=== PATIENT | female | born 1990 | race African-American/Black ===

== ENCOUNTER 2017-05-11 08:06 | Observation (INO) | payer MEDICAID, OTHER ==
[2017-05-11] MEDS ORDERED: Insulin Regular 300 UNITS/3 ML VIAL ONE (08:48)
[2017-05-11 09:08] LABS: #Basophils 0.1 thou/uL (0.0-0.2); #Lymphocytes 2.7 thou/uL (1.20-3.40); #Monocytes 0.3 thou/uL (0.11-0.59); #Neutrophils 5.6 thou/uL (1.40-6.50); %Basophils 1.3 % (0.0-1.0); %Eosinophils 0.5 % (0.0-10.0); %Lymphocytes 30.6 % (21.0-51.0); %Monocytes 3.4 % (0.0-10.0); %Neutrophils 64.2 % (42.0-75.0); Hemoglobin 12.3 g/dL (12.0-16.0); Mean Corpuscular HGB CONC 34.9 g/dL (32.0-36.0); Mean Corpuscular Hemoglobin 29.1 pg (27.0-31.0); Mean Corpuscular Volume 83.4 fl (81.0-99.0); Mean Platelet Volume 9.9 fL (7.4-10.4); Platelet Count 172 thou/uL (130-400); RBC Distribution Width 11.6 % (11.5-14.5); Red Blood Cell (RBC) Count 4.21 mill/uL (4.20-5.40); White Blood Cell (WBC) Count 8.7 thou/uL (4.8-10.8)
--- NOTE | 2017-05-11 09:26 | RAD ---
RADIOGRAPH CHEST 1 VIEW: HISTORY: A 27-year-old female with chest pain and hyperglycemia. Type 1 diabetes mellitus. FINDINGS: The visualized lung velázquez are clear. The cardiomediastinal silhouette and hilar shadows are normal. The lateral costophrenic angles are sharp. The osseous structures appear normal. There is no pneu mothorax. IMPRESSION: Negative. [place] [] POS: [facility]
[2017-05-11 09:30] LABS: Bilirubin Negative (Negative); Blood, Urine Negative (Negative); Clarity CLOUDY (Clear); Glucose, Urine (Dipstick) 500 mg/dL (Negative); Leukocyte Moderate (Negative); Nitrite Negative (Negative); Protein, Urine (Dipstick) Negative (Neg-Trace); Specific Gravity, Urine 1.021 (1.002-1.036)
[2017-05-11 09:32] LABS: ALT (SGPT) 14 U/L (8-55); AST (SGOT) 11 U/L (5-34); Albumin 3.8 g/dL (3.5-5.0); Alkaline Phosphatase 78 U/L (40-150); Anion Gap 14 mmol/L (10-20); BUN (Urea Nitrogen) 12 mg/dL (7.0-18.7); Bilirubin, Total 0.6 mg/dL (0.2-1.2); Calc. Creatinine Clearance 0 mL/min (70-130); Calcium 9.2 mg/dL (7.8-10.44); Carbon Dioxide 21 mmol/L (22-29); Chloride 100 mmol/L (98-107); Estimated GFR-MDRD 71; Globulin 3.7 g/dL (2.4-3.5); Glucose 544 mg/dL (70-105); Lipase 32 U/L (8-78); Potassium 4.2 mmol/L (3.5-5.1); Protein, Total 7.5 g/dL (6.0-8.3); Sodium 131 mmol/L (136-145)
[2017-05-11 09:35] LABS: Bacteria/HPF 4+ HPF (None Seen); Hyaline Casts/LPF 0-3 HYALINE CAST LPF (0-3 Hyaline); Pathc Cast-AUWi Flag 0.13 (0-2.49); RBC/HPF 0-3 HPF (0-3); Squamous Epithelial None Seen HPF (0-3)
[2017-05-11 09:35] LABS: Troponin I 0.016 ng/mL (< 0.028)
[2017-05-11 10:27] LABS: Pregnancy Test - Urine (BHCG) Negative (Negative); Pregu Control Background? CLEAR/WHITE (CLR/WHITE); Pregu Control Bar Appear? YES (CONTROL BAR); Specific Gravity 1.021 (1.002-1.036)
[2017-05-11] MEDS ORDERED: Ondansetron HCl/PF 4 MG/2 ML Vial IVP PRN (12:30)
[2017-05-11] MEDS ORDERED: Ondansetron ODT 4 MG TAB PO PRN (12:30)
[2017-05-11] MEDS ORDERED: Acetaminophen 325 MG TAB PO PRN (12:30)
[2017-05-11] MEDS ORDERED: Sodium Chloride 0.9% 1,000 ML IV SCH (12:30)
[2017-05-11] MEDS ORDERED: Dextrose 50% Abboject 50 ML SYRINGE SLOW IVP PRN (12:30)
[2017-05-11] MEDS ORDERED: Mag-Al 1200 mg/1200 mg/30 ML UDCUP PO PRN (12:30)
[2017-05-11] MEDS ORDERED: Dextrose 5% in Water 1,000 ML IV PRN (12:30)
[2017-05-11 12:40] VITALS: BP 139/96; TEMP 98.9; BMI 21.4
[2017-05-11] MEDS ORDERED: Insulin Detemir 100 UNITS/ML 25 UNITS in Admixture Fee SC SCH ×2 (12:45→21:00)
[2017-05-11] MEDS: HumaLOG 300 UNITS/3 ML VIAL SC PRN ×2 (12:50→17:09)
[2017-05-11 14:51] LABS: Anion Gap 14 mmol/L (10-20); BUN (Urea Nitrogen) 8 mg/dL (7.0-18.7); Calc. Creatinine Clearance 94 mL/min (70-130); Calcium 8.9 mg/dL (7.8-10.44); Carbon Dioxide 21 mmol/L (22-29); Chloride 104 mmol/L (98-107); Estimated GFR-MDRD Greater than 90; Glucose 341 mg/dL (70-105); Sodium 135 mmol/L (136-145)
[2017-05-11] MEDS ORDERED: Gabapentin 100 MG CAP PO SCH (15:00)
--- NOTE | 2017-05-11 15:13 | HP ---
PRIMARY CARE PHYSICIAN: Dr. Nelson. MACHINE PIE MAKER: Dr. Moscoso. CHIEF COMPLAINT: [place] like I was going to pass out. HISTORY OF PRESENT ILLNESS: Ms. Nevarez is a pleasant 27-year-old female that has a history of type 1 diabetes. She has had this for approximately 14 years. She says that she got up for work this mo rning and did not really feel that bad other than just a little bit of weakness. She says that she g oes to work around 6:00 a.m. and usually she will eat around 10:00 a.m., but usually she takes her in sulin in the morning, Lantus insulin before she leaves for work, but at this time she did not. She t hought she would be able to wait until her lunch break around 10 and take her insulin then, but prior to that happening, she felt very weak like she was going to pass out. She felt like she could barel y stand up and then she vomited, felt very drained and no energy. She went to the nurse's office at her job and they checked her blood sugar and it was extremely high and they referred her over to the emergency room. When she was seen in the ER, her blood sugar was 528 and she did have elevation in h er beta hydroxybutyrate, but she was not acidotic and did not have an elevated anion gap. When asked has she been feeling bad lately, she denies any fevers or chills. No cough. She has had diarrhea, but she says she has had this for the past month or more and usually she has this 2-3 times a week an d sometimes 2-3 times a day. There is no blood in the stools. She also says that she occasionally h as palpitations and in fact was seeing Dr. Faye over at [place] [facility] [place]. She was supposed to be wear ing a heart monitor, but she says something "happened with her insurance" and she was not able to com plete that evaluation, but plans to get follow up on this. She also says that her diabetes is much b lynn controlled since she has been recently placed on Lantus insulin. Prior to being placed on Lant us about a month ago, her blood sugars are running in the 4 and 5 hundreds. Now since being on Lantu s, they usually run around 200. She also says that she plans to see Dr. Moscoso tomorrow in fact she davison s an appointment for followup tomorrow. Currently, she is actually hungry and her symptoms are ginger r after being given about a liter of fluids and 5 units of insulin IV and her blood sugars have impro agnes tremendously as well. She is going to be placed in observation to be watched for a few hours mor e. REVIEW OF SYSTEMS: CONSTITUTIONAL: There have been no fevers, chills, no night sweats, no weight lo ss. HEENT: No headaches, no dizziness, no visual changes, no sore throat, rhinorrhea, neck pain, no adenopathy. PULMONARY: No hemoptysis, no cough, no wheezing. CARDIOVASCULAR: She denies any ches t pain, no shortness of breath, no PND, and no orthopnea. GASTROINTESTINAL: She had some nausea and one episode of vomiting earlier. She has chronic diarrhea, no abdominal pain. GENITOURINARY: No u rinary frequency, hematuria, no hesitancy. NEUROLOGIC: No focal weakness, numbness, no seizures. P SYCHIATRIC: She denies any depression now, but she did appear to have a little bit of a flat affect, but when asked, she says she is depressed off and on, but will not elaborate, but there was no suici savanna or homicidal ideation. PAST MEDICAL HISTORY: Significant for diabetes mellitus type 1 for 14 years. PAST SURGICAL HISTORY: She has had a gallbladder removed as well as tonsillectomy. ALLERGIES: No known drug allergies. SOCIAL HISTORY: She is . She is a nonsmoker, nondrinker. She does not have any children. FAMILY HISTORY: Significant for diabetes and hypertension. CURRENT MEDICATIONS: Include Lantus insulin 25 units twice a day, Humalog 10 units 3 times a day wit h meals. PHYSICAL EXAMINATION: GENERAL: She is alert and oriented. She appears to be in no acute distress. VITAL SIGNS: Her heart rate is ranging from about 108-120, blood pressure was 136/76, respiratory ra te of 16. HEENT: Pupils are equal, round, and reactive. Extraocular muscles are intact. Her sclerae are anic teric. Throat; no erythema, no exudates. NECK: No adenopathy, no bruits. LUNGS: Clear. No wheezing, no rales. CARDIOVASCULAR: She has a normal S1 and S2. I did not appreciate an S3 or S4. No murmurs, clicks, no rubs. ABDOMEN: Soft, nontender, and nondistended. Positive for bowel sounds. No rebound, no guarding. EXTREMITIES: There is no clubbing, cyanosis, no edema. NEUROLOGIC: The exam is nonfocal. LABORATORY DATA: White blood cell count is 8.7, hemoglobin 12.3, hematocrit is 35.1, and platelet co unt is 172. Sodium 131, potassium 4.2, chloride is 100, CO2 is 21, BUN of 12, creatinine 1.1, glucos e was initially 544 and now it is 251. Urinalysis was positive for leukocyte esterase, too numerous to white blood cells and 4+ bacteria. ASSESSMENT AND PLAN: This is a pleasant 27-year-old female that presents with uncontrolled diabetes mellitus. This is likely because she missed her a.m. dose of Levemir. She likely does not meet crit eria for DKA and her blood sugars have improved since she has been given insulin as well as IV fluids in the ER. I suspect she should improve rather quickly. She will be placed in observation. We carroll l continue IV fluid resuscitation given her usual dose of Lantus and covered her with a sliding scale and if she is improved later on this evening and likely she can be discharged home. I would like fo r her to be able to keep her appointment with her supervisor nutritional yeast tomorrow such that they can make mo re definitive adjustments in her blood glucose. I also suspect that she may be having some difficult y coping with her disease process and I have encouraged her to talk to her supervisor nutritional yeast about that possibly seeking a support program for persons with type 1 diabetes as this can be difficult, especi ally in young patients. She voiced understanding. Also, referred her to the [employer] website which can offer her information and support as well.
[2017-05-11] MEDS ORDERED: FLU VACC QS2017-18 36 mo. & older 0.5 ML SYRINGE IM ONE (16:00)
[2017-05-11] MEDS ORDERED: HumaLOG 300 UNITS/3 ML VIAL SC SCH (17:00)
--- NOTE | 2017-05-12 00:55 | DIS ---
DATE OF ADMISSION: 05/11/2017 DATE OF DISCHARGE: 05/11/2017 PRIMARY CARE PHYSICIAN: Dr. Nelson. DISCHARGE DISPOSITION: Home. PRIMARY DISCHARGE DIAGNOSES: 1. Diabetes mellitus type 1, uncontrolled. 2. Probable hyperthyroidism. 3. Urinary tract infection. 4. Hypertension. DISCHARGE MEDICATIONS: Include Bactrim-DS 1 tablet twice a day for 3 days. She is to continue Levem ir insulin 25 units twice a day, NovoLog insulin 10 units 3 times a day with meals. If she is not ab le to get NovoLog, then she should take regular insulin 8 units 3 times a day with meals. Continue g abapentin 100 mg 3 times a day. CODE STATUS: FULL CODE. ALLERGIES: No known drug allergies. HOSPITAL COURSE: Ms. Eliana Nevarez is a pleasant 27-year-old female who came to the emergency ro after she was feeling weak and tired at work. She was noted to have a very high blood glucose and was sent over to the emergency room. She was not in DKA. However, due to the elevation in her bloo d glucose, it was felt us to bring her blood glucose under better control as well as hydrate her as s he is likely dehydrated due to the hyperglycemia. At the time of discharge, her blood glucose was in the mid 200 range, which is typically where she runs prior to admission. She expressed to me that s he has had some difficulty obtaining Humalog insulin due to an insurance change, but she says she has "plenty of Lantus." For this reason, we will send an additional prescription for regular insulin in the event that she cannot get the NovoLog insulin and she has been instructed to follow up with her catalogue maker tomorrow. She also has a resting tachycardia and TSH was ordered. A free T4 was pen ding, but her TSH was suppressed and I suspect that she could have some hyperthyroidism, which has be en possibly undiagnosed. I told her to discuss this with her catalogue maker tomorrow as well. She may need a thyroid ultrasound and thyroid scan and she was explained that she could have the need for further evaluation and she expressed understanding. In the meantime, we will place her on carvedilo l to help with blood pressure as well as her heart rate. She was instructed that untreated hypertens ion as well as hyperthyroidism can lead to heart failure. She also had a urinary tract infection and since she is diabetic and had this episode, we will go ahead and treat this with Bactrim. The patie nt therefore was discharged home and to have close followup with her primary care physician as well a s her catalogue maker.
[2017-05-12 08:43] LABS: Base Excess-Venous -2.8 mmol/L (-30.0-30.0); Bicarbonate (HCO3v) 21.7 mmol/L (1.0-85.0); O2 Tension (PvO2) 85.7 mmHg (35.0-45.0); pH (Venous) 7.388 (7.35-7.45); vO2 Saturation-calc 96.5 % (0.0-100.0)
[2017-05-12 08:44] LABS: Calcium, Ionized 1.07 mmol/L (1.12-1.32); Potassium 4.3 mmol/L (3.4-4.7); T. Carbon Dioxide 22.8 mmol/L (1.0-85.0)
[2017-05-12] MEDS ORDERED: Insulin Detemir 100 UNITS/ML 25 UNITS in Admixture Fee SC SCH (09:00)
== END 2017-05-11 17:16 | disposition home or self-care (01) ==
LOC: ERS 08:06 → 2SW 10:53
PROVIDERS: ADMIT Internal Medicine; ATTEND Internal Medicine
DX: E10.65 Type 1 diabetes mellitus with hyperglycemia (principal); N39.0 Urinary tract infection, site not specified; I10 Essential (primary) hypertension; E10.40 Type 1 diabetes mellitus with diabetic neuropathy, unspecified; Z90.49 Acquired absence of other specified parts of digestive tract; Z98.890 Other specified postprocedural states
CPT/HCPCS: 36415; 36416; 71045; 80053; 81003; 81015; 81025; 82010; 82330; 82435; 82803; 83605; 83690; 84132; 84295; 84439; 84443; 84484; 85014; 85025; 85379; 87077; 87086; 87186; 90471; 90682; 90732; 93005; 94760; 96361; 96374; 96375; G0008; G0009; J0696; J1815; Q2036

== ENCOUNTER 2018-01-12 09:35 | Observation (INO) | payer SELFPAY ==
[2018-01-12 10:05] LABS: #Basophils 0.1 thou/uL (0.0-0.2); #Eosinphils 0.1 thou/uL (0.0-0.7); #Lymphocytes 2.6 thou/uL (1.20-3.40); #Monocytes 0.5 thou/uL (0.11-0.59); #Neutrophils 7.6 thou/uL (1.40-6.50); %Eosinophils 0.9 % (0.0-10.0); %Lymphocytes 23.9 % (21.0-51.0); %Monocytes 4.1 % (0.0-10.0); %Neutrophils 70.1 % (42.0-75.0); Hemoglobin 12.8 g/dL (12.0-16.0); Mean Corpuscular Hemoglobin 27.4 pg (27.0-31.0); Mean Platelet Volume 10.2 fL (7.4-10.4); Platelet Count 228 thou/uL (130-400); RBC Distribution Width 14.7 % (11.5-14.5); Red Blood Cell (RBC) Count 4.68 mill/uL (4.20-5.40); White Blood Cell (WBC) Count 10.9 thou/uL (4.8-10.8)
[2018-01-12 10:11] LABS: Base Excess-Venous -3.1 mmol/L (0 (+/- 2.5)); CO2 Tension (PvCO2) 43.7 mmHg (41.0-51.0); Calcium, Ionized 1.15 mmol/L (1.12-1.32); Hemoglobin - Calc 14.1 g/dL (12.0-18.0); O2 Tension (PvO2) 50.2 mmHg (35.0-45.0); Potassium 4.2 mmol/L (3.4-4.7); T. Carbon Dioxide 24.3 mmol/L (1.0-85.0); pH (Venous) 7.329 (7.35-7.45); vO2 Saturation-calc 82.3 % (94-98)
[2018-01-12 10:29] LABS: ALT (SGPT) 30 U/L (8-55); AST (SGOT) 28 U/L (5-34); Albumin 4.4 g/dL (3.5-5.0); Alkaline Phosphatase 90 U/L (40-150); Anion Gap 19 mmol/L (10-20); BUN (Urea Nitrogen) 19 mg/dL (7.0-18.7); Bilirubin, Total 0.6 mg/dL (0.2-1.2); Calc. Creatinine Clearance 0 mL/min (70-130); Calcium 10.1 mg/dL (7.8-10.44); Carbon Dioxide 20 mmol/L (22-29); Chloride 96 mmol/L (98-107); Estimated GFR-MDRD 42; Globulin 4.8 g/dL (2.4-3.5); Phosphorus 4.3 mg/dL (2.3-4.7); Potassium 4.5 mmol/L (3.5-5.1); Protein, Total 9.2 g/dL (6.0-8.3); Sodium 130 mmol/L (136-145)
[2018-01-12 10:30] LABS: Bilirubin Negative (Negative); Blood, Urine Moderate (Negative); Clarity TURBID (Clear); Glucose, Urine (Dipstick) >=1000 mg/dL (Negative); Leukocyte Large (Negative); Nitrite Negative (Negative); Protein, Urine (Dipstick) Trace mg/dL (Neg-Trace); Specific Gravity, Urine 1.019 (1.002-1.036); Urobilinogen 0.2 mg/dL (0.2-1.0); pH, Urine 5.5 (5.0-9.0)
[2018-01-12 10:32] LABS: Hyaline Casts/LPF 0-3 HYALINE CAST LPF (0-3 Hyaline)
[2018-01-12 10:36] LABS: Yeast-AUWi Flag 117.2 (0-25.0)
[2018-01-12 10:37] LABS: Pregnancy Test - Urine (BHCG) Negative (Negative); Pregu Control Background? CLEAR/WHITE (CLR/WHITE); Pregu Control Bar Appear? YES (CONTROL BAR); Specific Gravity 1.019 (1.002-1.036)
[2018-01-12 10:37] LABS: Glucose 621 mg/dL (70-105)
[2018-01-12 11:04] LABS: Bacteria/HPF 4+ HPF (None Seen); Yeast-All Forms None Seen HPF (None Seen)
[2018-01-12] MEDS ORDERED: Insulin Regular 300 UNITS/3 ML VIAL ONE (11:10)
[2018-01-12] MEDS ORDERED: Acetaminophen 500 MG TAB ONE (11:10)
[2018-01-12] MEDS ORDERED: cefTRIAXone\\ROCEPHIN 2 GM VIAL ONE (11:50)
[2018-01-12 12:18] LABS: Bilirubin Negative (Negative); Blood, Urine Small (Negative); Clarity CLOUDY (Clear); Glucose, Urine (Dipstick) >=1000 mg/dL (Negative); Leukocyte Large (Negative); Nitrite Negative (Negative); Protein, Urine (Dipstick) Negative (Neg-Trace); Specific Gravity, Urine 1.018 (1.002-1.036); Urobilinogen 0.2 mg/dL (0.2-1.0); pH, Urine 6.5 (5.0-9.0)
[2018-01-12 12:27] LABS: Bacteria/HPF 4+ HPF (None Seen); Hyaline Casts/LPF 0-3 HYALINE CAST LPF (0-3 Hyaline); Pathc Cast-AUWi Flag 0.43 (0-2.49); Squamous Epithelial None Seen HPF (0-3)
[2018-01-12] MEDS ORDERED: Morphine 4 MG/ML VIAL ONE (12:50)
[2018-01-12] MEDS ORDERED: Ondansetron ODT 4 MG TAB PO PRN (14:32)
[2018-01-12] MEDS ORDERED: Ondansetron PF 4 MG/2 ML Vial IVP PRN ×2 (14:32→14:33)
[2018-01-12] MEDS ORDERED: Acetaminophen 325 MG TAB PO PRN ×2 (14:32→14:33)
[2018-01-12] MEDS ORDERED: Ondansetron ODT 4 MG TAB SL PRN (14:33)
[2018-01-12] MEDS ORDERED: Dextrose 50% Abboject 50 ML SYRINGE SLOW IVP PRN (14:38)
[2018-01-12] MEDS ORDERED: Dextrose 5% in Water 1,000 ML IV PRN (14:38)
[2018-01-12] MEDS ORDERED: Sodium Chloride 0.9% 1,000 ML IV SCH (14:45)
[2018-01-12 15:11] LABS: Lactic Acid 0.9 mmol/L (0.5-2.2)
[2018-01-12] MEDS: Sodium Chloride 0.9% 1,000 ML IV SCH (15:27)
[2018-01-12] MEDS: Acetaminophen/Codeine 30-300mg Tablet PO PRN ×2 (17:19→21:28)
[2018-01-12] MEDS: HumaLOG 300 UNITS/3 ML VIAL SC PRN ×2 (17:27→21:28)
[2018-01-12 17:39] VITALS: BMI 22.0
[2018-01-13] MEDS: Sodium Chloride 0.9% 1,000 ML IV SCH ×3 (01:56→22:27)
[2018-01-13] MEDS: Acetaminophen/Codeine 30-300mg Tablet PO PRN ×2 (03:44→17:32)
[2018-01-13 05:11] LABS: Hemoglobin A1c 14.4 % (4.0-6.0)
[2018-01-13 05:21] LABS: ALT (SGPT) 51 U/L (8-55); AST (SGOT) 62 U/L (5-34); Alkaline Phosphatase 67 U/L (40-150); Anion Gap 7 mmol/L (10-20); BUN (Urea Nitrogen) 13 mg/dL (7.0-18.7); Bilirubin, Total 0.2 mg/dL (0.2-1.2); Calc. Creatinine Clearance 91 mL/min (70-130); Calcium 8.5 mg/dL (7.8-10.44); Carbon Dioxide 26 mmol/L (22-29); Chloride 108 mmol/L (98-107); Estimated GFR-MDRD 90; Globulin 2.9 g/dL (2.4-3.5); Glucose 218 mg/dL (70-105); Potassium 3.9 mmol/L (3.5-5.1); Protein, Total 5.9 g/dL (6.0-8.3); Sodium 137 mmol/L (136-145)
[2018-01-13] MEDS: HumaLOG 300 UNITS/3 ML VIAL SC PRN ×4 (05:53→20:57)
[2018-01-13 06:05] LABS: Hemoglobin 9.1 g/dL (12.0-16.0); Hypochromia SLIGHT = 6-15 cells (100X) (0-5/hpf); Lymphocytes 58 % (21-51); MDiff Complete? YES; Mean Corpuscular Hemoglobin 27.6 pg (27.0-31.0); Mean Corpuscular Volume 83.6 fL (78.0-98.0); Mean Platelet Volume 9.6 fL (7.4-10.4); Monocytes 4 % (0-10); Neutrophil 38 % (42-75); PLT Morphology Comment Appears Adequate; Platelet Count 171 thou/uL (130-400); RBC Distribution Width 14.9 % (11.5-14.5); Red Blood Cell (RBC) Count 3.29 mill/uL (4.20-5.40); White Blood Cell (WBC) Count 8.2 thou/uL (4.8-10.8)
--- NOTE | 2018-01-13 08:32 | HP ---
Patient presented to the ED with hyperglycemia. She was having some visual changes and dizziness. Checked her glucose and the meter read "hi". Patient reports that she has stopped taking her long-acting insulin, because she states it makes her feel nauseated and lightheaded. She has not been checking her blood sugars routinely, but states she was admitted in October to the [facility], and at that time, she believes her hemoglobin A1c was 12. REVIEW OF SYSTEMS: Only notable for the above-mentioned vision changes, some musculoskeletal-type chest pain from [id number], and nocturia x4-5. No symptoms of acute illness or infection. Otherwise, a 10-system review is negative. PAST MEDICAL HISTORY: Notable for diabetes mellitus, type 1, since the age of 13; diabetic neuropathy in her feet. Prior DKA. PAST SURGICAL HISTORY: Cholecystectomy and tonsillectomy. FAMILY HISTORY: Father had [place] and hypertension. Mother had diabetes and hypertension. SOCIAL HISTORY: The patient is a nonsmoker, nondrinker, nondrug user. She lives with her boyfriend. She is sexually active. Does not use control. She is a FULL CODE. MEDICATIONS: None. ALLERGIES: Humalog 10 units q.a.c., Lantus 25 units b.i.d. The patient has not been taking carvedilol and lisinopril. PHYSICAL EXAMINATION: VITAL SIGNS: Temperature 98.2, pulse 115, respirations 14, O2 sat 99% on room air, BP 140/81. GENERAL APPEARANCE: Age-appropriate female. She is in no distress. She is awake, alert, oriented, pleasant, cooperative. HEENT: PERRL. No OP lesions. NECK: Supple and symmetric with no lymphadenopathy, JVD, or carotid bruits. HEART: Regular rate and rhythm without murmurs, gallops, or rubs. LUNGS: Clear to auscultation bilaterally. Good chest wall expansion. Good air exchange. ABDOMEN: Flat, soft, nontender, nondistended, positive bowel sounds, no masses , no organomegaly. SKIN: Warm and dry. LABORATORY DATA: White count 10.9, hemoglobin 12.8, platelets 228. ABG, pH 7.329, pCO2 of 43.7, pO2 was 50. Sodium 130, potassium 4.5, chloride 96, CO2 is 20, BUN 19, creatinine 1.74. Initial glucose greater than 550, followup 651. Calcium 10.1. LFTs normal. Urinalysis shows greater than 1000 glucose, negative ketones, moderate blood, large leukocyte esterase, 11-20 red cells, greater than 50 white cells, 4+ bacteria. Beta hydroxybutyrate 0.73. IMPRESSION AND PLAN: 1. Hyperglycemia, on the border of diabetic ketoacidosis. She is not significantly acidotic, although borderline positive for hydroxybutyrate, some underlying urinary tract infection. She has been tachycardic. She has been noncompliant with her insulin regimen. We will aggressively hydrate with normal saline at 100 mL per hour and give her aggressive sliding scale insulin until we get some better control. Recheck labs in the morning. 2. Insulin noncompliance. The patient has a history of noncompliance with her insulin regimen. 3. Acute renal insufficiency. May be secondary to dehydration. Will reassess after her hydration. 4. Urinary tract infection. Cover with broad-spectrum antibiotics and follow up on the urine cultures. 5. Hypertension. Continue with the Zestril. 6. Tachycardia. Likely secondary to dehydration. Continue to monitor. 7. Pseudohyponatremia. Monitor as sugars are improved. MTDD
[2018-01-13] MEDS: Lisinopril 5 MG TAB PO SCH (09:03)
[2018-01-13] MEDS: cefTRIAXone\\ROCEPHIN 1 GM in Sodium Chloride 0.9% 100 ML IVPB SCH (12:10)
[2018-01-13] MEDS ORDERED: Insulin Glargine 10 UNITS in Pre-Filled Syringe 1 EACH SC SCH (15:00)
--- NOTE | 2018-01-13 20:59 | PDOC.PN ---
- Subjective Encounter Start Date: 01/13/18 Encounter Start Time: 09:00 Complains of numbness in her hands. - Objective Resuscitation Status: Resuscitation Status FULL:Full Resuscitation Vital Signs & Weight: Vital Signs (12 hours) Temp Pulse Resp BP Pulse Ox 01/13/18 19:40 98.6 F 107 H 18 102/67 99 01/13/18 14:55 98.4 F 108 H 20 132/74 100 01/13/18 10:52 98.0 F 106 H 20 139/95 H 100 01/13/18 09:03 105 H Weight Weight 136 lb 11.2 oz I&O: 01/12/18 01/13/18 01/14/18 06:59 06:59 06:59 Intake Total 1493 1999 Output Total 1100 Balance 393 1999 Result Diagrams: 01/13/18 04:50 01/13/18 04:50 Additional Labs: Accuchecks 01/13/18 01/13/18 01/13/18 17:18 10:59 05:53 POC Glucose 283 H 222 H 225 H 01/12/18 21:25 POC Glucose 250 H Phys Exam - Physical Examination Constitutional: NAD Respiratory: no wheezing, no rales, no rhonchi, clear to auscultation bilateral Cardiovascular: RRR, no significant murmur, no rub Tachycardia Gastrointestinal: soft, non-tender, no distention, positive bowel sounds Musculoskeletal: no edema Normal function of B hands/fingers. Psychiatric: normal affect, A&O x 3 Dx/Plan (1) Hyperglycemia Code(s): R73.9 - HYPERGLYCEMIA, UNSPECIFIED Status: Acute Comment: Improved. Adding some long acting insulin today. Primarily issue of non- compliance. (2) Diabetes mellitus Code(s): E11.9 - TYPE 2 DIABETES MELLITUS WITHOUT COMPLICATIONS Status: Acute Qualifiers: Diabetes mellitus type: type 1 Comment: Likely has developed resistance to insulin. May benefit from insulin plant technician. (3) Hyperthyroidism Code(s): E05.90 - THYROTOXICOSIS, UNSP WITHOUT THYROTOXIC CRISIS OR STORM Status: Acute Comment: Hx of hyperthyroidism. Recheck in am. She is persistently tachycardic. May be source of the paresthesia. May need treatment , but must consider child-bearing status. May benefit from PTU. (4) Tachycardia Code(s): R00.0 - TACHYCARDIA, UNSPECIFIED Status: Acute Comment: Chronic over past admissions. May be from hyperthyroidism and/or dehydration. (5) Paresthesia Code(s): R20.2 - PARESTHESIA OF SKIN Status: Acute Comment: May be secondary to substantial drop in glucose, after school caregiver her extremely high A1c. May be related to the hyperthyroidism. (6) Noncompliance Code(s): Z91.19 - PATIENT'S NONCOMPLIANCE W OTH MEDICAL TREATMENT AND REGIMEN Status: Acute Comment: Stopped long-acting insulin. She was able to articulate all of the potential damage to organs as a related to the uncontrolled DM. Suspect that her feeling poorly with the insulin is the fact that she has allowed it to get so high, so long that she feels poorly when it comes down. - Plan * Adding the long acting insulin again. Check TSH in am. Anticipate discharge tomorrow. Needs to follow up with prosthetics assistant.
[2018-01-14] MEDS: HumaLOG 300 UNITS/3 ML VIAL SC PRN (06:07)
[2018-01-14 08:30] LABS: #Basophils 0.1 thou/uL (0.0-0.2); #Eosinphils 0.2 thou/uL (0.0-0.7); #Lymphocytes 3.1 thou/uL (1.20-3.40); #Monocytes 0.4 thou/uL (0.11-0.59); #Neutrophils 3.7 thou/uL (1.40-6.50); %Basophils 0.7 % (0.0-1.0); %Eosinophils 2.5 % (0.0-10.0); %Lymphocytes 41.1 % (21.0-51.0); %Monocytes 5.5 % (0.0-10.0); %Neutrophils 50.2 % (42.0-75.0); Hemoglobin 9.5 g/dL (12.0-16.0); Mean Corpuscular HGB CONC 33.1 g/dL (32.0-36.0); Mean Corpuscular Hemoglobin 27.9 pg (27.0-31.0); Mean Corpuscular Volume 84.2 fL (78.0-98.0); Mean Platelet Volume 9.7 fL (7.4-10.4); Platelet Count 171 thou/uL (130-400); RBC Distribution Width 14.8 % (11.5-14.5); Red Blood Cell (RBC) Count 3.39 mill/uL (4.20-5.40); White Blood Cell (WBC) Count 7.5 thou/uL (4.8-10.8)
[2018-01-14 08:45] LABS: Anion Gap 9 mmol/L (10-20); BUN (Urea Nitrogen) 12 mg/dL (7.0-18.7); Calc. Creatinine Clearance 87 mL/min (70-130); Calcium 8.9 mg/dL (7.8-10.44); Carbon Dioxide 21 mmol/L (22-29); Chloride 112 mmol/L (98-107); Estimated GFR-MDRD 85; Glucose 189 mg/dL (70-105); Potassium 3.9 mmol/L (3.5-5.1); Sodium 138 mmol/L (136-145)
[2018-01-14] MEDS ORDERED: Insulin Glargine 25 UNITS in Pre-Filled Syringe 1 EACH SC SCH (09:00)
[2018-01-14 09:04] LABS: Free T4 (Free Thyroxine) 0.8 ng/dL (0.70-1.48); Thyroid Stimulating Hormone 0.6505 uIU/mL (0.35-4.94)
[2018-01-14] MEDS: Sodium Chloride 0.9% 1,000 ML IV SCH (09:30)
[2018-01-14] MEDS: Lisinopril 5 MG TAB PO SCH (09:31)
[2018-01-14 12:17] VITALS: BP 160/109; TEMP 98.2
[2018-01-14] MEDS: cefTRIAXone\\ROCEPHIN 1 GM in Sodium Chloride 0.9% 100 ML IVPB SCH (12:26)
[2018-01-14] MEDS: Acetaminophen/Codeine 30-300mg Tablet PO PRN (12:36)
--- NOTE | 2018-01-15 10:50 | DIS ---
DATE OF ADMISSION: 01/12/2018 DATE OF DISCHARGE: 01/14/2018 DISCHARGE DIAGNOSES: 1. Severe hyperglycemia. 2. Diabetic neuropathy. 3. Paresthesia of the hands. 4. History of hyperthyroidism. 5. Severe noncompliance with medical regimen. 6. Hypertension. 7. Pseudohyponatremia. 8. Acute renal insufficiency secondary to dehydration. 9. Urinary tract infection with Escherichia coli. HOSPITAL COURSE: This patient is a 27-year-old female who has a history of type 1 diabetes since the age of 13, but requiring 80 units of insulin for control, suggesting some significant insulin resist ance. The patient has had prior admissions with noncompliance, hyperglycemia and DKA. The patient p resented to the emergency department with complaints of hyperglycemia and some visual changes. Her m eter simply read high. The patient reported that she had stopped taking much of her insulin because she felt like it was making her feel bad. Her last admission apparently was at the [facility] where she believed her hemoglobin A1c at that time was 12. The patient's initial gurjit p was notable for some tachycardia. Otherwise, she appeared fairly normal from there. PHYSICAL EXAMINATION: She did have severe hyperglycemia. She also had some evidence of a urinary tr act infection. She had a BUN of 19 and a creatinine of 1.74, which was above her baseline. This was felt to be due to dehydration related to the hyperglycemia. She also had pseudohyponatremia. HOSPITAL COURSE: The patient was admitted with severe hyperglycemia secondary to noncompliance with her medical regimen. She was also felt to have some acute renal insufficiency secondary to dehydrati on. She had a urinary tract infection, hypertension, tachycardia, and pseudohyponatremia. She was s tarted on aggressive IV hydration, starting in the emergency department and continuing into the hospi steve. She was placed on a diabetic diet and given sliding scale insulin. Her blood sugars did improv e and her hemoglobin A1c was rechecked and was substantially elevated at 14.4. When the patient's bl ood sugars started to improve she developed some paresthesias in her hands which were felt to be seco ndary to a drop in blood sugars. I had a long conversation with the patient regarding the fact that her A1c is so high that she is clearly wildly out of control with her blood sugars and attempts to ad just her blood sugars back down to the normal range certainly could be causing some paresthesia huerta es as well as some visual changes. The patient's renal function completely normalized with fluids. Tachycardia remained borderline. This was consistent through her prior admissions. In reviewing her records, she had had a previous diagnosis of hyperthyroidism and it was felt that this might be pers istent. We discussed this and anticipated a thyroid ultrasound. On her exam thyroid was unremarkabl e; however, repeat TSH and T4 came back within the normal range. Therefore, the thyroid ultrasound w as canceled. It was suspected that the patient likely had some degree of thyroiditis that was resolv ing. The patient was started back on her long-acting insulin on some long-acting insulin regimen and her blood sugar came down into the 100s. With that, the patient was felt to be stable from that per spective. She did have some E. coli growing in her urine and had received multiple doses of Rocephin to which it was sensitive and it was felt that this would likely be adequate to treat her infection. I did talk to the patient again at length regarding the fact that she is currently sexually active and using no form of control. I strongly encouraged her to strongly consider control giv en the fact that she is so poorly controlled with her blood sugars at least until she can get a ginger r handle on this. We also talked at length about her noncompliance. The patient was very readily ab le to list off the number of complications that could occur as a result of her poorly controlled diab etes so clearly she has some understanding of that. We also discussed the fact that she may need mor e oral regimen with some insulin sensitizers in order to control her blood sugars given the fact that she is requiring so much daily, insulin. Ultimately, however, given her risk for would pr efer she have that conversation with her PCP and consider treatment at that time. PHYSICAL EXAMINATION: VITAL SIGNS: On day of discharge, temperature is 97.9, pulse 101, respirations 20, O2 sat 100, BP ra nged from 102/67 up to 160/109. GENERAL: She was awake, alert, and oriented, pleasant, cooperative. HEART: Borderline tachycardic but regular, without murmurs. NECK: Thyroid was not palpable. LUNGS: Clear to auscultation bilaterally with no wheezes or rales. ABDOMEN: Soft, nontender, nondistended, positive bowel sounds, no masses, no organomegaly. EXTREMITIES: Warm and dry. DISPOSITION: The patient is discharged to home. ACTIVITY: As tolerated. DIET: She will stay on a diabetic diet. MEDICATIONS: She will be on Lantus 25 units subcu b.i.d., Humalog 10 units subcu t.i.d. with meals, Zestril 5 mg daily. FOLLOWUP: She is to follow up with her primary care provider, Dr. Sundar Nelson within 7 days and she can return to the emergency department should she have any problems prior to that time.
== END 2018-01-14 15:25 | disposition home or self-care (01) ==
LOC: ERS 09:35 → 2SW 14:19
PROVIDERS: ADMIT Internal Medicine; ATTEND Internal Medicine
DX: E10.65 Type 1 diabetes mellitus with hyperglycemia (principal); E10.40 Type 1 diabetes mellitus with diabetic neuropathy, unspecified; I10 Essential (primary) hypertension; E87.1 Hypo-osmolality and hyponatremia; N28.9 Disorder of kidney and ureter, unspecified; N39.0 Urinary tract infection, site not specified; B96.20 Unspecified Escherichia coli [E. coli] as the cause of diseases classified elsewhere; E05.90 Thyrotoxicosis, unspecified without thyrotoxic crisis or storm; Z91.14 Patient's other noncompliance with medication regimen; Z88.8 Allergy status to other drugs, medicaments and biological substances
CPT/HCPCS: 36415; 36416; 80048; 80053; 81003; 81015; 81025; 82010; 82330; 82803; 83036; 83605; 83735; 84100; 84439; 84443; 85025; 87040; 87077; 87086; 87186; 93005; 96361; 96365; 96366; 96375; 96376; G0378; J0696; J1815; J2270; J3370; J7050

== ENCOUNTER 2018-04-15 10:05 | Emergency (ER) | payer OTHER, SELFPAY ==
[2018-04-15] MEDS ORDERED: Ondansetron PF 4 MG/2 ML Vial ONE (10:52)
[2018-04-15] MEDS ORDERED: Insulin Regular 300 UNITS/3 ML VIAL ONE (10:52)
[2018-04-15 11:37] LABS: Bilirubin Negative (Negative); Blood, Urine Negative (Negative); Clarity CLOUDY (Clear); Glucose, Urine (Dipstick) >=1000 mg/dL (Negative); Leukocyte Small (Negative); Nitrite Negative (Negative); Protein, Urine (Dipstick) Negative (Neg-Trace); Specific Gravity, Urine 1.023 (1.002-1.036); Urobilinogen 0.2 mg/dL (0.2-1.0); pH, Urine 5.5 (5.0-9.0)
[2018-04-15 11:40] LABS: Bacteria/HPF 4+ HPF (None Seen); Hyaline Casts/LPF 0-3 HYALINE CAST LPF (0-3 Hyaline); RBC/HPF 0-3 HPF (0-3); Squamous Epithelial None Seen HPF (0-3)
[2018-04-15 11:49] LABS: #Basophils 0.2 thou/uL (0.0-0.2); #Eosinphils 0.1 thou/uL (0.0-0.7); #Lymphocytes 3.4 thou/uL (1.20-3.40); #Monocytes 0.3 thou/uL (0.11-0.59); #Neutrophils 4.1 thou/uL (1.40-6.50); %Basophils 1.9 % (0.0-1.0); %Eosinophils 1.5 % (0.0-10.0); %Lymphocytes 42.2 % (21.0-51.0); %Monocytes 3.6 % (0.0-10.0); %Neutrophils 50.9 % (42.0-75.0); Hemoglobin 12.1 g/dL (12.0-16.0); Mean Corpuscular HGB CONC 34.1 g/dL (32.0-36.0); Mean Corpuscular Hemoglobin 28.5 pg (27.0-31.0); Mean Corpuscular Volume 83.7 fL (78.0-98.0); Mean Platelet Volume 10.1 fL (7.4-10.4); Platelet Count 211 thou/uL (130-400); Red Blood Cell (RBC) Count 4.23 mill/uL (4.20-5.40); White Blood Cell (WBC) Count 8.1 thou/uL (4.8-10.8)
[2018-04-15] MEDS ORDERED: cefTRIAXone\\ROCEPHIN 1 GM VIAL ONE (12:04)
[2018-04-15 12:13] LABS: ALT (SGPT) 21 U/L (8-55); AST (SGOT) 16 U/L (5-34); Albumin 4.2 g/dL (3.5-5.0); Alkaline Phosphatase 96 U/L (40-150); Anion Gap 15 mmol/L (10-20); BUN (Urea Nitrogen) 17 mg/dL (7.0-18.7); Bilirubin, Total 0.5 mg/dL (0.2-1.2); Calc. Creatinine Clearance 0 mL/min (70-130); Carbon Dioxide 26 mmol/L (22-29); Chloride 92 mmol/L (98-107); Estimated GFR-MDRD 47; Globulin 4.3 g/dL (2.4-3.5); Magnesium 2.2 mg/dL (1.6-2.6); Phosphorus 4.4 mg/dL (2.3-4.7); Potassium 4.8 mmol/L (3.5-5.1); Protein, Total 8.5 g/dL (6.0-8.3); Sodium 128 mmol/L (136-145)
[2018-04-15 12:15] LABS: Glucose 596 mg/dL (70-105)
[2018-04-15] MEDS ORDERED: Ketorolac Tromethamine 30 MG/ML VIAL ONE (12:47)
[2018-04-15 13:02] LABS: Base Excess-Venous 0.7 mmol/L (0 (+/- 2.5)); Bicarbonate (HCO3v) 25.8 mmol/L (22.0-29.0); CO2 Tension (PvCO2) 42.2 mmHg (41.0-51.0); Calcium, Ionized 1.18 mmol/L (1.12-1.32); O2 Tension (PvO2) 64.6 mmHg (35.0-45.0); Potassium 3.9 mmol/L (3.4-4.7); T. Carbon Dioxide 27.1 mmol/L (1.0-85.0); pH (Venous) 7.394 (7.35-7.45); vO2 Saturation-calc 92.1 % (94-98)
[2018-04-15 14:59] LABS: ALT (SGPT) 20 U/L (8-55); AST (SGOT) 17 U/L (5-34); Albumin 3.8 g/dL (3.5-5.0); Alkaline Phosphatase 84 U/L (40-150); Anion Gap 15 mmol/L (10-20); BUN (Urea Nitrogen) 17 mg/dL (7.0-18.7); Bilirubin, Total 0.3 mg/dL (0.2-1.2); Calc. Creatinine Clearance 0 mL/min (70-130); Calcium 9.4 mg/dL (7.8-10.44); Carbon Dioxide 21 mmol/L (22-29); Chloride 102 mmol/L (98-107); Estimated GFR-MDRD 67; Globulin 4.1 g/dL (2.4-3.5); Glucose 230 mg/dL (70-105); Potassium 4.3 mmol/L (3.5-5.1); Protein, Total 7.9 g/dL (6.0-8.3); Sodium 134 mmol/L (136-145)
== END 2018-04-15 15:23 | disposition home or self-care (01) ==
LOC: ERS 10:05
DX: E10.65 Type 1 diabetes mellitus with hyperglycemia (principal); E86.0 Dehydration; N39.0 Urinary tract infection, site not specified; E10.40 Type 1 diabetes mellitus with diabetic neuropathy, unspecified; I10 Essential (primary) hypertension; Z79.4 Long term (current) use of insulin; Z79.899 Other long term (current) drug therapy
CPT/HCPCS: 36415; 36416; 80053; 81003; 81015; 82010; 82330; 82803; 83605; 83735; 84100; 85025; 87077; 87086; 87186; 96361; 96365; 96375; J0696; J1815; J1885; J2405

== ENCOUNTER 2018-08-04 07:21 | Emergency (ER) | payer OTHER | END 2018-08-04 08:24 | disposition home or self-care (01) | LOC: ERS 07:21 | DX: L03.211 Cellulitis of face (principal); E10.40 Type 1 diabetes mellitus with diabetic neuropathy, unspecified; I10 Essential (primary) hypertension | CPT/HCPCS: 99283 ==

== ENCOUNTER 2018-10-19 20:53 | Emergency (ER) | payer OTHER ==
[~2018-10-19 20:53] MED LIST: Iopamidol 370 76% 100 ML VIAL ONE
[2018-10-19 21:52] LABS: Bacteria/HPF 4+ HPF (None Seen); Bilirubin Negative (Negative); Blood, Urine Negative (Negative); Clarity Turbid (Clear); Glucose, Urine (Dipstick) Greater than 1000 mg/dL (Negative); Leukocyte 500 Leu/uL (Negative); Nitrite Negative (Negative); Protein, Urine (Dipstick) 20 mg/dL (Neg-Trace); RBC/HPF 0-3 HPF (0-3); Squamous Epithelial 0-3 HPF (0-3); Urobilinogen Normal mg/dL (Less than 2); WBC/HPF Greater than 50 HPF (0-3)
[2018-10-19 22:05] LABS: #Basophils 0.1 thou/uL (0.0-0.2); #Eosinphils 0.1 thou/uL (0.0-0.7); #Lymphocytes 3.2 thou/uL (1.20-3.40); #Monocytes 0.4 thou/uL (0.11-0.59); #Neutrophils 4.2 thou/uL (1.40-6.50); %Basophils 1.1 % (0.0-1.0); %Eosinophils 1.6 % (0.0-10.0); %Lymphocytes 39.6 % (21.0-51.0); %Monocytes 5.5 % (0.0-10.0); %Neutrophils 52.2 % (42.0-75.0); Hemoglobin 11.8 g/dL (12.0-16.0); Mean Corpuscular HGB CONC 34.7 g/dL (32.0-36.0); Mean Corpuscular Volume 83.6 fL (78.0-98.0); Mean Platelet Volume 10.4 fL (7.4-10.4); Platelet Count 188 thou/uL (130-400); RBC Distribution Width 12.2 % (11.5-14.5); Red Blood Cell (RBC) Count 4.06 mill/uL (4.20-5.40)
[2018-10-19 22:16] LABS: BHCG - Serum Negative (NEGATIVE); Pregs Control Background? CLEAR/WHITE (CLR/WHITE); Pregs Control Bar Appear? YES (CONTROL BAR)
[2018-10-19 22:28] LABS: ALT (SGPT) 18 U/L (8-55); AST (SGOT) 14 U/L (5-34); Albumin 4.1 g/dL (3.5-5.0); Alkaline Phosphatase 91 U/L (40-150); Anion Gap 16 mmol/L (10-20); BUN (Urea Nitrogen) 16 mg/dL (7.0-18.7); Bilirubin, Total 0.7 mg/dL (0.2-1.2); Calc. Creatinine Clearance 0 mL/min (70-130); Calcium 9.8 mg/dL (7.8-10.44); Carbon Dioxide 23 mmol/L (22-29); Chloride 99 mmol/L (98-107); Estimated GFR-MDRD 69; Globulin 3.5 g/dL (2.4-3.5); Glucose 370 mg/dL (70-105); Potassium 4.4 mmol/L (3.5-5.1); Protein, Total 7.6 g/dL (6.0-8.3); Sodium 134 mmol/L (136-145)
[2018-10-19] MEDS ORDERED: cefTRIAXone\\ROCEPHIN 2 GM VIAL ONE (23:00)
[2018-10-19] MEDS ORDERED: Ketorolac Tromethamine 30 MG/ML VIAL ONE (23:00)
[2018-10-19] MEDS ORDERED: Morphine 4 MG/ML VIAL ONE (23:12)
--- NOTE | 2018-10-19 23:41 | CT ---
CT Abdomen Pelvis W Con HISTORY: Abdomen and left flank pain history of UTI. Cholecystectomy. COMPARISON: 03/16/2010 study FINDINGS: The lung bases are clear. The liver, spleen and pancreas regions appear unremarkable. The g allbladder has been removed. Right and left adrenal glands and right and left kidneys are normal in size. No obstruction. No renal calculi. No significant periaortic or mesenteric adenopathy. There are some small mesenteric lymph nodes seen, nonspecific. CT of pelvis performed with contrast enhancement: There is suggestion of some lateral wall thickening raising the possibility of a cystitis. The appendix is not definitely identified, I see no CT evidence for appendicitis follicles are seen involving the adnexa. There is trace free fluid present. No significant pelvic lymphadenopathy. IMPRESSION: Mild bladder wall thickening suggesting the possibility of a cystitis.
--- NOTE | 2018-10-24 12:47 | EKG ---
Test Reason : Blood Pressure : / mmHG Vent. Rate : 118 BPM Atrial Rate : 118 BPM P-R Int : 116 ms QRS Dur : 066 ms QT Int : 330 ms P-R-T Axes : 078 064 055 degrees QTc Int : 462 ms Sinus tachycardia Possible Left atrial enlargement Borderline ECG Confirmed by DENIS PAZ, PRIYA ([id number]), editor trade journal DIPTI ROA ([id number]) on 10/24/2018 12:46:11 PM Referred By: Confirmed By:PRIYA BARRIOS MD
== END 2018-10-20 00:34 | disposition home or self-care (01) ==
LOC: ERS 20:53
DX: N39.0 Urinary tract infection, site not specified (principal); E10.9 Type 1 diabetes mellitus without complications; I10 Essential (primary) hypertension
CPT/HCPCS: 36415; 36416; 74177; 80053; 81003; 81015; 82010; 84703; 85025; 87077; 87086; 87186; 93005; 96365; 96375; J0696; J1885; J2270; Q9967

== ENCOUNTER 2018-11-14 22:34 | Inpatient (IN) | payer OTHER, SELFPAY ==
[2018-11-14] MEDS ORDERED: Ketorolac Tromethamine 30 MG/ML VIAL ONE (22:58)
[2018-11-14] MEDS ORDERED: Piperacillin/Tazobactam 3.375 GM VIAL ONE (22:58)
--- NOTE | 2018-11-14 23:08 | RAD ---
EXAM: Single view of the chest HISTORY: Shortness of breath COMPARISON: 05/11/2017 FINDINGS: Single view of the chest shows a normal sized cardiomediastinal silhouette. There is no cecelia dence of consolidation, mass, or pleural effusion. The bones are unremarkable. IMPRESSION: No evidence of acute cardiopulmonary disease
[2018-11-14 23:21] LABS: #Basophils 0.1 thou/uL (0.0-0.2); #Eosinphils 0.3 thou/uL (0.0-0.7); #Lymphocytes 3.2 thou/uL (1.20-3.40); #Monocytes 0.7 thou/uL (0.11-0.59); #Neutrophils 4.2 thou/uL (1.40-6.50); %Basophils 1.4 % (0.0-1.0); %Eosinophils 3.4 % (0.0-10.0); %Monocytes 8.4 % (0.0-10.0); %Neutrophils 48.9 % (42.0-75.0); Mean Corpuscular HGB CONC 33.7 g/dL (32.0-36.0); Mean Corpuscular Hemoglobin 28.4 pg (27.0-31.0); Mean Corpuscular Volume 84.2 fL (78.0-98.0); Mean Platelet Volume 9.9 fL (7.4-10.4); Platelet Count 182 thou/uL (130-400); RBC Distribution Width 12.6 % (11.5-14.5); Red Blood Cell (RBC) Count 3.86 mill/uL (4.20-5.40); White Blood Cell (WBC) Count 8.5 thou/uL (4.8-10.8)
[2018-11-14 23:23] LABS: ALT (SGPT) 16 U/L (8-55); AST (SGOT) 14 U/L (5-34); Albumin 4.1 g/dL (3.5-5.0); Alkaline Phosphatase 77 U/L (40-150); Anion Gap 13 mmol/L (10-20); BUN (Urea Nitrogen) 10 mg/dL (7.0-18.7); Bilirubin, Total 0.7 mg/dL (0.2-1.2); Calc. Creatinine Clearance 0 mL/min (70-130); Calcium 9.9 mg/dL (7.8-10.44); Carbon Dioxide 28 mmol/L (22-29); Chloride 103 mmol/L (98-107); Estimated GFR-MDRD 71; Globulin 3.9 g/dL (2.4-3.5); Glucose 84 mg/dL (70-105); Lipase 34 U/L (8-78); Potassium 3.8 mmol/L (3.5-5.1); Sodium 140 mmol/L (136-145)
[2018-11-14 23:33] LABS: Pregnancy Test - Urine (BHCG) Negative (Negative); Pregu Control Background? CLEAR/WHITE (CLR/WHITE); Pregu Control Bar Appear? YES (CONTROL BAR); Specific Gravity 1.014 (1.002-1.036)
[2018-11-14 23:41] LABS: Bacteria/HPF 4+ HPF (None Seen); Bilirubin Negative (Negative); Blood, Urine Negative (Negative); Clarity Turbid (Clear); Glucose, Urine (Dipstick) 500 mg/dL (Negative); Leukocyte 500 Leu/uL (Negative); Nitrite Negative (Negative); Protein, Urine (Dipstick) 20 mg/dL (Neg-Trace); Urobilinogen Normal mg/dL (Less than 2); WBC/HPF Greater than 50 HPF (0-3); Yeast-Budding 1+ HPF (None Seen)
[2018-11-14] MEDS ORDERED: Morphine 4 MG/ML VIAL ONE (23:41)
[2018-11-15] MEDS ORDERED: Morphine 4 MG/ML VIAL ONE (01:10)
[2018-11-15] MEDS ORDERED: Doxycycline 100 MG CAP PO SCH ×2 (01:30→09:00)
[2018-11-15] MEDS ORDERED: Ondansetron PF 4 MG/2 ML Vial IVP PRN (02:08)
[2018-11-15] MEDS ORDERED: Ondansetron ODT 4 MG TAB SL PRN (02:08)
[2018-11-15 02:23] VITALS: BMI 20.3
[2018-11-15] MEDS: cefTRIAXone\\ROCEPHIN 2 GM in Sodium Chloride 0.9% 100 ML IVPB SCH ×2 (02:46→15:03)
[2018-11-15] MEDS: Sodium Chloride 0.45% 1,000 ML IV SCH ×2 (02:46→14:12)
[2018-11-15] MEDS ORDERED: Dextrose 50% Abboject 50 ML SYRINGE SLOW IVP PRN (03:34)
[2018-11-15] MEDS ORDERED: Dextrose 5% in Water 1,000 ML IV PRN (03:34)
[2018-11-15] MEDS ORDERED: HumaLOG 300 UNITS/3 ML VIAL SC PRN (03:34)
[2018-11-15] MEDS: Morphine 2 MG/ML SYRINGE SLOW IVP PRN ×4 (05:10→22:48)
[2018-11-15 05:37] LABS: Lactic Acid 1.4 mmol/L (0.5-2.2)
--- NOTE | 2018-11-15 08:06 | CT ---
PRELIMINARY REPORT/[facility]/EMERGENCY AFTER HOURS PROCEDURE: EXAM: CT Abdomen and Pelvis With Contrast EXAM DATE/TIME: 11/15/2018 12:17 AM CLINICAL HISTORY: 28 years old, female; Localized; Prior surgery; Patient HX: Er 15. F28 presents to the ED for evaluation of body aches, left sided abdominal pain, nausea and lightheadedness onset today. PT repor ts she is taking bactrim for a UTI. PT reports she was diagnosed with a UTI at the [place] in [place]. PT reports she was last hospitalized for dka one year ago. Surgical history of cholecystectomy, laparoscopic TECHNIQUE: Imaging protocol: Computed tomography of the abdomen and pelvis with intravenous contrast. COMPARISON: No relevant prior studies available. FINDINGS: Liver: Normal. No mass. Gallbladder and bile ducts: Prior cholecystectomy. Pancreas: Normal. No ductal dilation. Spleen: Normal. No splenomegaly. Adrenals: Normal. No mass. Kidneys and ureters: Normal. No hydronephrosis. Stomach and bowel: No bowel wall thickening or intestinal obstruction. Appendix: Appendix not visualized. No evidence of appendicitis. Intraperitoneal space: No pneumoperitoneum or abscess. Vasculature: Unremarkable. No abdominal aortic aneurysm. Lymph nodes: Unremarkable. No enlarged lymph nodes. Bladder: Inflammatory thickening of the wall of the urinary bladder consistent with cystitis. Reproductive: The ovaries are not well-visualized on this study. There is suggestion of a possible fl uid attenuation tubular-cystic left ovarian structure (images 71-72 of axial series 3) which is difficult to separate from nearby bowel, raising the possibility of left ovarian cyst or tubo-ovarian abscess. Consider ultrasound. Bones/joints: Unremarkable. No acute fracture. Soft tissues: Unremarkable. IMPRESSION: 1. Cystitis. 2. The ovaries are not well-visualized on this study. There is suggestion of a possible fluid attenua tion tubular-cystic left ovarian structure (images 71-72 of axial series 3) which is difficult to separate from nearby bowel, raising the possibility of left ovarian cyst or tubo-ovarian abscess. Consider ultrasound. Thank you for allowing us to participate in the care of your patient. Dictated and Authenticated by: Francisco Torres MD 11/15/2018 12:54 AM Central Time ([place] & [place]) FINAL REPORT: CT ABDOMEN AND PELVIS: History: Abdominal pain. Comparison: CT abdomen and pelvis October 19, 2018. Findings: There is mild third spacing of fluid. Small volume free fluid in the pelvis. Mild periportal edema. L tess bases are clear. No acute osseous abnormality. No hydronephrosis. Continued mild bilateral wall thickening. Small reactive superficial inguinal lymph nodes. Impression: Findings and impression are concordant with the preliminary report. Likely left adnexal cyst. Transcribed Date/Time: 11/15/2018 9:02 AM
--- NOTE | 2018-11-15 08:10 | ULT ---
PRELIMINARY REPORT/[facility]/EMERGENCY AFTER HOURS PROCEDURE: EXAM: US Pelvis, Transvaginal EXAM DATE/TIME: 11/15/2018 1:09 AM CLINICAL HISTORY: 28 years old, female; Pain; Other: Body aches, ? area on CT, R/O toa TECHNIQUE: Imaging protocol: Real-time transvaginal pelvic ultrasound with image documentation. Transvaginal imaging was used for better evaluation of the endometrium and adnexa. COMPARISON: CT Abdomen Pelvis W Con 11/15/2018 12:17 AM FINDINGS: Uterus/cervix: Normal thickness endometrial stripe. Suggestion of a 1.1 cm posterior uterine fibroid. Right adnexa: Normal right ovary with normal Doppler signal. Left adnexa: 2.4 cm simple left ovarian cyst. Left ovary otherwise normal with normal Doppler signal. Free fluid: None. IMPRESSION: 1. 2.4 cm simple left ovarian cyst. 2. Suggestion of a 1.1 cm posterior uterine fibroid. Thank you for allowing us to participate in the care of your patient. Dictated and Authenticated by: Francisco Torres MD 11/15/2018 4:29 AM Central Time ([place] & [place]) FINAL REPORT: US PELVIC TRANSVAGINAL: History: Concern for tubular ovarian abscess. Comparison: CT same day. Findings: Real-time grayscale, color, and spectral analysis of the pelvis was performed transvaginal approach. There is a left ovarian cyst. Endometrial thickness is normal. Uterus is normal. Adequate vascular fl ow to both ovaries. No tubular ovarian abscess. Impression: Left ovarian cyst. No tubular ovarian abscess. Transcribed Date/Time: 11/15/2018 8:49 AM
[2018-11-15] MEDS ORDERED: Gabapentin 100 MG CAP PO SCH (09:15)
[2018-11-15 12:48] LABS: Hemoglobin A1c 10.2 % (4.0-6.0)
--- NOTE | 2018-11-15 15:11 | HP ---
PRIMARY CARE PHYSICIAN: Dr. Kam Nelson. CHIEF COMPLAINT: Body aches. HISTORY OF PRESENT ILLNESS: Ms. Nevarez is a pleasant 28-year-old lady, who was seen at [facility] on November 15, 2018. She reports having abdominal pain over the last 2 to 3 months, in the periumbilical region, radiating to the back. She describes it as sharp, 8/10 at its worst, accompanied by occasional nausea and occasional diarrhea, no fevers. She denies any dysuria or increased frequency of urination. She reports occasional lightheadedness. She reports that she was started on Bactrim for urinary tract infection by emergency room in [place]. She has an insulin pump and reports that her blood sugar has been in the 100s. REVIEW OF SYSTEMS: All systems were reviewed and found to be negative. PAST MEDICAL HISTORY: Diabetes mellitus type 1, diabetic neuropathy, hypertension. PAST SURGICAL HISTORY: Cholecystectomy, tonsillectomy. SOCIAL HISTORY: The patient denies tobacco use, alcohol use, or recreational drug use. FAMILY HISTORY: Significant for congestive heart failure in her father and maternal grandmother. ALLERGIES: NO KNOWN DRUG ALLERGIES. HOME MEDICATIONS: Insulin pump. PHYSICAL EXAMINATION: GENERAL: Ms. Nevarez is awake and alert, not in acute distress. VITAL SIGNS: Blood pressure is 123/81, pulse 100, respiratory rate 18, and oxygen saturation 98% on room air. She is afebrile. In the emergency room when she initially presented, she had pulse of 120 and blood pressure of 87/52. Respiratory rate was 20. HEENT: Eyes: No scleral icterus. No conjunctival pallor. ENT: Moist mucosal membranes. No oropharyngeal erythema or exudates. NECK: Supple. Nontender. Trachea is midline. RESPIRATORY: Accessory muscles of breathing are not active. Chest wall movements are symmetric bilaterally. Lungs are clear to auscultation without wheeze, rhonchi, or crepitations. CARDIOVASCULAR: S1 and S2 are heard, regular. Peripheral pulses are palpable. No carotid bruit. No pericardial rub. ABDOMEN: Soft. She has left costovertebral angle tenderness. No guarding or rigidity. Bowel sounds are heard. NEUROLOGIC: Cranial nerves 2 through 12 intact. Deep tendon reflexes are 2+. MUSCULOSKELETAL: Power is 5/5 in all 4 extremities. SKIN: No rashes or subcutaneous nodules. LYMPHATIC: No cervical lymphadenopathy. PSYCHIATRIC: Normal mood. Normal affect. The patient is oriented to person, place and time. LABORATORY DATA: Ms. Nevarez' labs and investigations were reviewed. She had a chest x-ray, which did not show any pulmonary infiltrates. She had CT scan of the abdomen and pelvis, which showed findings consistent with cystitis. She also had pelvic/transvaginal ultrasound, which showed 2.4 cm simple left ovarian cyst and suggestion of a 1.1 cm posterior uterine fibroid. There was no evidence for tubular ovarian abscess. She has an unremarkable CBC, elevated creatinine of 1.1, last known creatinine was 1.13 on November 11, 2018, normal electrolytes, unremarkable LFTs, and normal lipase. Lactic acid level was initially elevated at 2.3, subsequently normalized to 1.4. Hemoglobin A1c is elevated at 10.2. Urinalysis is positive for leukocyte esterase, urine bacteria, and urine yeast. Urine test was negative. ASSESSMENT AND PLAN: Ms. Nevarez is a pleasant 28-year-old lady, who was seen at [facility] on November 15, 2018. Her problem list includes: 1. Pyelonephritis: Ms. Nevarez is presenting with pyelonephritis. Her urine culture from October 19, 2018, grew Escherichia coli that was resistant to fluoroquinolones, but was otherwise ly sensitive. I will continue her on ceftriaxone for now and await urine cultures. 2. Diabetes mellitus, type 1: The patient is to use insulin pump. She has been started on Accu-Cheks and insulin sliding scale. 3. Chronic kidney disease, stage 2: Stable. The patient reports that she has been started on gabapentin recently, 100 mg in the morning and 200 mg at bedtime for diabetic neuropathy. I will continue this medication. Many thanks for allowing me to participate in your patient's care. Please feel free to contact me with any questions or concerns. LEVEL OF RISK: Moderate. LEVEL OF COMPLEXITY: Moderate. Job ID: [id number]
[2018-11-15] MEDS: Gabapentin 100 MG CAP PO SCH (22:45)
[2018-11-16] MEDS: cefTRIAXone\\ROCEPHIN 2 GM in Sodium Chloride 0.9% 100 ML IVPB SCH ×2 (03:53→14:50)
[2018-11-16] MEDS: Morphine 2 MG/ML SYRINGE SLOW IVP PRN ×5 (05:17→23:06)
[2018-11-16] MEDS: Gabapentin 100 MG CAP PO SCH ×2 (08:07→20:38)
[2018-11-16 12:28] LABS: #Basophils 0.1 thou/uL (0.0-0.2); #Eosinphils 0.3 thou/uL (0.0-0.7); #Monocytes 0.5 thou/uL (0.11-0.59); #Neutrophils 3.5 thou/uL (1.40-6.50); %Basophils 1.7 % (0.0-1.0); %Eosinophils 4.1 % (0.0-10.0); %Lymphocytes 39.8 % (21.0-51.0); %Monocytes 6.8 % (0.0-10.0); %Neutrophils 47.6 % (42.0-75.0); Hemoglobin 10.8 g/dL (12.0-16.0); Mean Corpuscular HGB CONC 33.3 g/dL (32.0-36.0); Mean Corpuscular Volume 84.2 fL (78.0-98.0); Mean Platelet Volume 9.9 fL (7.4-10.4); Platelet Count 154 thou/uL (130-400); RBC Distribution Width 12.8 % (11.5-14.5); Red Blood Cell (RBC) Count 3.86 mill/uL (4.20-5.40); White Blood Cell (WBC) Count 7.5 thou/uL (4.8-10.8)
[2018-11-16 12:48] LABS: Anion Gap 12 mmol/L (10-20); BUN (Urea Nitrogen) 11 mg/dL (7.0-18.7); Calc. Creatinine Clearance 104 mL/min (70-130); Calcium 9.4 mg/dL (7.8-10.44); Carbon Dioxide 20 mmol/L (22-29); Chloride 110 mmol/L (98-107); Estimated GFR-MDRD Greater than 90; Glucose 86 mg/dL (70-105); Potassium 4.3 mmol/L (3.5-5.1); Sodium 138 mmol/L (136-145)
--- NOTE | 2018-11-16 15:20 | PDOC.HOSPP ---
- Subjective Encounter Date: 11/16/18 Encounter Time: 09:00 Subjective: Pt seen for4 followup re: acute pyelonephritis. Feels better. - Objective Vital Signs & Weight: Vital Signs (12 hours) Temp Pulse Resp BP Pulse Ox 11/16/18 07:21 97.9 F 106 H 16 143/98 H 98 11/16/18 04:00 97.8 F 102 H 20 126/86 97 Weight Weight 126 lb I&O: 11/15/18 11/16/18 11/17/18 06:59 06:59 06:59 Intake Total 600 720 Balance 600 720 Result Diagrams: 11/16/18 12:22 11/16/18 12:22 Additional Labs: Accuchecks 11/16/18 11/16/18 11/15/18 11:42 04:57 20:17 POC Glucose 103 51 L* 125 H 11/15/18 16:11 POC Glucose 72 Labs and MARs reviewed by me. Hospitalist ROS - Review of Systems Respiratory: denies: cough, dry, shortness of breath, hemoptysis, SOB with excertion, pleuritic pain, sputum, wheezing Cardiovascular: denies: chest pain, palpitations, orthopnea, paroxysmal noc. dyspnea, edema, light headedness - Medication Medications: Active Medications Generic Name Dose Route Start Last Admin Trade Name Freq PRN Reason Stop Dose Admin Gabapentin 100 mg 11/16/18 09:00 11/16/18 08:07 Neurontin PO 100 mg DAILY GARRISON Administration Gabapentin 200 mg 11/15/18 21:00 11/15/18 22:45 Neurontin PO 200 mg HS GARRISON Administration Ceftriaxone Sodium 2 gm/ 100 mls @ 200 mls/hr 11/15/18 03:00 11/16/18 14:50 Sodium Chloride IVPB 11/19/18 14:00 100 mls 0300,1500 GARRISON Administration Morphine Sulfate 2 mg 11/15/18 03:32 11/16/18 14:54 Morphine SLOW IVP 2 mg Q4H PRN Administration Severe Pain (7-10) Sodium Chloride 10 ml 11/15/18 21:00 11/16/18 08:22 Flush - Normal Saline IVF Not Given Q12HR GARRISON - Exam General Appearance: NAD Eye: anicteric sclera ENT: moist mucosa Neck: supple Heart: RRR Respiratory: CTAB Gastrointestinal: soft Gastrointestinal - other findings: L CVA tenderness Extremities: no clubbing Skin: no lesions Neurological: CN's grossly intact Psychiatric: normal affect, normal behavior Hosp A/P (1) Acute pyelonephritis Code(s): N10 - ACUTE PYELONEPHRITIS Status: Acute (2) DM type 1 (diabetes mellitus, type 1) Status: Chronic - Plan continue antibiotics, out of bed/ambulate Continue IV ceftriaxone, presumptive E. coli on urine culture. Continue insulin pump, accuchecks and sliding scale insulin.
[2018-11-17] MEDS: cefTRIAXone\\ROCEPHIN 2 GM in Sodium Chloride 0.9% 100 ML IVPB SCH (03:04)
[2018-11-17 05:25] LABS: #Basophils 0.1 thou/uL (0.0-0.2); #Eosinphils 0.2 thou/uL (0.0-0.7); #Lymphocytes 3.1 thou/uL (1.20-3.40); #Monocytes 0.6 thou/uL (0.11-0.59); %Basophils 1.2 % (0.0-1.0); %Eosinophils 3.1 % (0.0-10.0); %Lymphocytes 38.3 % (21.0-51.0); %Monocytes 7.4 % (0.0-10.0); %Neutrophils 50.1 % (42.0-75.0); Hemoglobin 9.5 g/dL (12.0-16.0); Mean Corpuscular HGB CONC 34.3 g/dL (32.0-36.0); Mean Corpuscular Hemoglobin 28.8 pg (27.0-31.0); Mean Corpuscular Volume 83.9 fL (78.0-98.0); Mean Platelet Volume 9.9 fL (7.4-10.4); Platelet Count 141 thou/uL (130-400); RBC Distribution Width 12.8 % (11.5-14.5); Red Blood Cell (RBC) Count 3.29 mill/uL (4.20-5.40); White Blood Cell (WBC) Count 8.1 thou/uL (4.8-10.8)
[2018-11-17 05:45] LABS: Anion Gap 10 mmol/L (10-20); BUN (Urea Nitrogen) 15 mg/dL (7.0-18.7); Calc. Creatinine Clearance 104 mL/min (70-130); Calcium 8.4 mg/dL (7.8-10.44); Carbon Dioxide 24 mmol/L (22-29); Chloride 107 mmol/L (98-107); Estimated GFR-MDRD Greater than 90; Glucose 74 mg/dL (70-105); Potassium 4.1 mmol/L (3.5-5.1); Sodium 137 mmol/L (136-145)
[2018-11-17 05:49] VITALS: TEMP 97.7
[2018-11-17] MEDS: Morphine 2 MG/ML SYRINGE SLOW IVP PRN (08:46)
[2018-11-17] MEDS: Gabapentin 100 MG CAP PO SCH (08:48)
[2018-11-17 13:26] VITALS: BP 125/82
--- NOTE | 2018-11-18 11:19 | DIS ---
DATE OF ADMISSION: 11/15/2018 DATE OF DISCHARGE: 11/17/2018 PRIMARY CARE PROVIDER: Dr. Kam Nelson. DISCHARGE DIAGNOSIS: Pyelonephritis secondary to Escherichia coli, resistant to fluoroquinolones. CONDITION OF PATIENT ON THE DAY OF DISCHARGE: Stable. I assessed Ms. Nevarez on the day of discharge. She denies any chest pain or shortness of breath. Vital signs are stable. S1 and S2 are heard, regular. Lungs are clear to auscultation bilaterally. DISCHARGE MEDICATIONS: 1. Insulin per insulin pump. 2. Gabapentin 100 mg in the morning and 200 mg at bedtime. 3. Bactrim DS one tablet 2 times a day for 2 weeks. HOSPITAL COURSE: Ms. Nevarez is a pleasant 28-year-old lady, who was admitted to [facility] for acute pyelonephritis on November 15, 2018. She was treated with intravenous ceftriaxone. Urine cultures grew Escherichia coli that was resistant to fluoroquinolones, but was otherwise pansensitive. The patient improved clinically. She has been switched to Bactrim DS at the time of discharge. She also had a pelvic/transvaginal ultrasound, which showed 2.4 cm simple left ovarian cyst and suggestion of a 1.1 cm posterior uterine fibroid. Many thanks for allowing me to participate in your patient's care. Please feel free to contact me with any questions or concerns. DISCHARGE DESTINATION: Home. TIME SPENT: Total amount of time spent coordinating this discharge: 32 minutes. Job ID: [id number]
--- NOTE | 2018-11-19 10:06 | PQF ---
[employer] Crystal Reports Winform FERNIE Hi CHOCO MONZON [id number] CLINICAL DOCUMENTATION CLARIFICATION FORM: POST DISCHARGE Addendum to original discharge summary date: ____ Late entry note date: __ DATE: 11/19/2018 ATTN: CHOCO MONZON Please exercise your independent, professional judgment in responding to the clarification form. Clinical indicators are provided on the bottom of this form for your review Please check appropriate box(s) to clarify if the following diagnosis has been ruled in or ruled out: Sepsis [ ] Ruled in diagnosis [ ] Continue to treat [ ] Resolved [ x ] Ruled out diagnosis [ ] Cannot rule out diagnosis [ ] Other diagnosis [ ] Unable to determine For continuity of documentation, please document condition throughout progress notes and discharge summary. Thank You. CLINICAL INDICATORS - SIGNS / SYMPTOMS / LABS - Sepsis- ED record, 11/14, Erich Barrios DO - Temp: 97.9, Pulse: 120, RR: 20-ED record, 11/14, Erich Barrios DO - WBC: 8.5- Laboratory report, 11/14 - Pyelonephritis sec to Escherichia coli- DS, 11/17, Dennis Horne MD - ressitant to furoquinolones- DS, 11/17, Dennis Horne MD RISK FACTORS - Diabetes mellitus type 1-Hospital PN, 11/16, Dennis Horne MD - Cholecystectomy - H&P, 11/15, Dennis Horne MD TREATMENTS - Zosyn.IV-MAY, 11/14 - Rocephin.IV-MAR, 11/14 (This form is maintained as a part of the permanent medical record) 2014 [employer] All Rights Reserved [employer] [place] [not provided] [not provided] MTDD
== END 2018-11-17 13:32 | disposition home or self-care (01) | DRG 690 ==
LOC: ERS 22:34 → T4-A 11-15 01:55
PROVIDERS: ADMIT Hospitalist; ATTEND Hospitalist
DX: N10 Acute pyelonephritis (principal); B96.20 Unspecified Escherichia coli [E. coli] as the cause of diseases classified elsewhere; I12.9 Hypertensive chronic kidney disease with stage 1 through stage 4 chronic kidney disease, or unspecified chronic kidney disease; E10.40 Type 1 diabetes mellitus with diabetic neuropathy, unspecified; E10.22 Type 1 diabetes mellitus with diabetic chronic kidney disease; D25.9 Leiomyoma of uterus, unspecified; N18.2 Chronic kidney disease, stage 2 (mild); Z96.41 Presence of insulin pump (external) (internal); Z90.49 Acquired absence of other specified parts of digestive tract; Z79.2 Long term (current) use of antibiotics
CPT/HCPCS: 36415; 36416; 71045; 74177; 76856; 80048; 80053; 81003; 81015; 81025; 83036; 83605; 83690; 85025; 87040; 87077; 87086; 87186; 96365; 96366; 96375; 96376; J0696; J1885; J2270; J2543; J3490; Q9967

== ENCOUNTER 2018-11-21 20:28 | Emergency (ER) | payer SELFPAY ==
[2018-11-21] MEDS ORDERED: Ondansetron PF 4 MG/2 ML Vial ONE ×2 (20:51→20:55)
[2018-11-21 21:02] LABS: Hemoglobin 11.5 g/dL (12.0-16.0); Mean Corpuscular HGB CONC 34.5 g/dL (32.0-36.0); Mean Corpuscular Hemoglobin 28.8 pg (27.0-31.0); Mean Corpuscular Volume 83.2 fL (78.0-98.0); Mean Platelet Volume 9.5 fL (7.4-10.4); Platelet Count 204 thou/uL (130-400); RBC Distribution Width 12.5 % (11.5-14.5); Red Blood Cell (RBC) Count 4.01 mill/uL (4.20-5.40); White Blood Cell (WBC) Count 8.7 thou/uL (4.8-10.8)
[2018-11-21 21:03] LABS: BHCG - Serum Negative (NEGATIVE); Pregs Control Background? CLEAR/WHITE (CLR/WHITE); Pregs Control Bar Appear? YES (CONTROL BAR)
[2018-11-21 21:18] LABS: ALT (SGPT) 28 U/L (8-55); AST (SGOT) 21 U/L (5-34); Albumin 3.9 g/dL (3.5-5.0); Alkaline Phosphatase 66 U/L (40-150); Anion Gap 15 mmol/L (10-20); BUN (Urea Nitrogen) 12 mg/dL (7.0-18.7); Bilirubin, Total 0.3 mg/dL (0.2-1.2); Calc. Creatinine Clearance 0 mL/min (70-130); Calcium 10.2 mg/dL (7.8-10.44); Carbon Dioxide 25 mmol/L (22-29); Chloride 101 mmol/L (98-107); Estimated GFR-MDRD 76; Globulin 3.8 g/dL (2.4-3.5); Glucose 183 mg/dL (70-105); Magnesium 1.9 mg/dL (1.6-2.6); Potassium 4.3 mmol/L (3.5-5.1); Protein, Total 7.7 g/dL (6.0-8.3); Sodium 137 mmol/L (136-145)
[2018-11-21 21:23] LABS: Eosinophils 1 % (0-10); Lymphocytes 62 % (21-51); MDiff Complete? YES; Monocytes 3 % (0-10); Neutrophil 32 % (42-75); Reactive Lymphocytes 2 % (0-10)
[2018-11-21] MEDS ORDERED: Ketorolac Tromethamine 30 MG/ML VIAL ONE (21:41)
[2018-11-21] MEDS ORDERED: Morphine 4 MG/ML VIAL ONE (23:03)
[2018-11-22 00:17] LABS: Bacteria/HPF None Seen HPF (None Seen); Bilirubin Negative (Negative); Blood, Urine Negative (Negative); Clarity Clear (Clear); Glucose, Urine (Dipstick) 30 mg/dL (Negative); Leukocyte 25 Leu/uL (Negative); Nitrite Negative (Negative); Protein, Urine (Dipstick) Negative (Neg-Trace); RBC/HPF 0-3 HPF (0-3); Squamous Epithelial 0-3 HPF (0-3); Urobilinogen Normal mg/dL (Less than 2); WBC/HPF 0-3 HPF (0-3)
[2018-11-22 01:02] LABS: Lactic Acid 1.1 mmol/L (0.5-2.2)
--- NOTE | 2018-11-22 08:20 | CT ---
PRELIMINARY REPORT/[facility]/EMERGENCY AFTER HOURS PROCEDURE: EXAM: CT Abdomen and Pelvis Without Contrast EXAM DATE/TIME: 11/22/2018 1:00 AM CLINICAL HISTORY: 28 years old, female; Abdominal pain; Patient HX: F28 presents to the ED C/O left flank pain. PT repo rts she has had left flank pain for the past month but has worsened yesterday. PT reports she was jus t released on Friday from the hospital after a kidney infection and was given bactrim. PT reports sh e hasn't taken anything for pain, and says the pain has not radiated anywhere. PT states she is curre ntly nauseated. PT is diabetic, and controls it with a pump. TECHNIQUE: Imaging protocol: Computed tomography of the abdomen and pelvis without contrast. COMPARISON: CT Abdomen Pelvis W Con 11/15/2018 12:17 AM FINDINGS: Liver: Normal. Gallbladder and bile ducts: Gallbladder is surgically absent. Pancreas: Normal. Spleen: Normal. Adrenals: Normal. Kidneys and ureters: Normal. Stomach and bowel: Moderate amount of stool throughout the colon, suggesting constipation. No evidence of obstruction. Appendix: Appendix is normal. Intraperitoneal space: Unremarkable. No free air. No significant fluid collection. Vasculature: Phleboliths within the pelvis. Lymph nodes: Unremarkable. No enlarged lymph nodes. Bladder: Unremarkable as visualized. Reproductive: 3.8 cm cystic structure within the left adnexa, likely left ovarian cyst. Bones/joints: No acute abnormality. Soft tissues: Normal. IMPRESSION: 1. No acute abdominal or pelvic abnormality. 2. Moderate amount of stool throughout the colon, suggesting constipation. No evidence of obstruction . Thank you for allowing us to participate in the care of your patient. Dictated and Authenticated by: Timothy Slater MD 11/22/2018 1:55 AM Central Time ([place] & [place]) FINAL REPORT ABDOMEN CT WITHOUT CONTRAST PELVIC CT WITHOUT CONTRAST: HISTORY: Left flank pain. FINDINGS: ABDOMEN CT: Lung bases are clear. Limited evaluation of the solid organs due to lack of IV contrast. Grossly, n o solid organ abnormality. The gallbladder is surgically absent. Bilaterally, no obstructive uropathy. No mesenteric mass, lymphadenopathy, free air, or free fluid. Limited evaluation of the alimentary canal due to lack of contrast administration. Ileocecal junctio n is unremarkable. Normal caliber appendix is identified. Scattered fecal material in a nondistende d, nondilated colon. CT PELVIS: Mucosal thickening of the urinary bladder may in part be due to inadequate distention. However, the possibility of cystitis cannot be excluded. Hypodensity in the left adnexa measuring 3.8 x 3.5 cm li kassie represents a complex left ovarian cyst. IMPRESSION: This report is in agreement with the preliminary report by [facility]. 1. Left ovarian cyst. 2. No evidence of obstructive uropathy. 3. Scattered fecal material in the colon. Correlate clinically for constipation. 4. Mucosal thickening in the urinary bladder. Correlate for cystitis. Results of the study discussed with Dr. Villaseñor_11/22/2018 at 11:02 a.m. CODE CR POS: OFF
== END 2018-11-22 03:21 | disposition home or self-care (01) ==
LOC: ERS 20:28
DX: K59.00 Constipation, unspecified (principal); E10.40 Type 1 diabetes mellitus with diabetic neuropathy, unspecified; I10 Essential (primary) hypertension
CPT/HCPCS: 36415; 36416; 74176; 80053; 81003; 81015; 82010; 83605; 83735; 84703; 85025; 87040; 93005; 96361; 96374; 96375; J1885; J2270; J2405

== ENCOUNTER 2019-05-01 12:45 | Inpatient (IN) | payer SELFPAY ==
[2019-05-01 13:25] LABS: #Basophils 0.2 thou/uL (0.0-0.2); #Eosinphils 0.3 thou/uL (0.0-0.7); #Monocytes 0.4 thou/uL (0.11-0.59); %Basophils 1.6 % (0.0-1.0); %Eosinophils 2.8 % (0.0-10.0); %Neutrophils 50.6 % (42.0-75.0); Hemoglobin 13.2 g/dL (12.0-16.0); Mean Corpuscular Hemoglobin 28.7 pg (27.0-31.0); Mean Corpuscular Volume 82.1 fL (78.0-98.0); Mean Platelet Volume 10.2 fL (7.4-10.4); Platelet Count 235 thou/uL (130-400); RBC Distribution Width 12.2 % (11.5-14.5); Red Blood Cell (RBC) Count 4.58 mill/uL (4.20-5.40); White Blood Cell (WBC) Count 9.9 thou/uL (4.8-10.8)
[2019-05-01 13:49] LABS: ALT (SGPT) 20 U/L (8-55); AST (SGOT) 18 U/L (5-34); Albumin 4.6 g/dL (3.5-5.0); Alkaline Phosphatase 99 U/L (40-110); Anion Gap 17 mmol/L (10-20); BUN (Urea Nitrogen) 16 mg/dL (7.0-18.7); Bilirubin, Total 0.4 mg/dL (0.2-1.2); Calc. Creatinine Clearance 0 mL/min (70-130); Calcium 10.4 mg/dL (7.8-10.44); Carbon Dioxide 23 mmol/L (22-29); Chloride 102 mmol/L (98-107); Estimated GFR-MDRD 61; Globulin 4.6 g/dL (2.4-3.5); Glucose 104 mg/dL (70-105); Lipase 73 U/L (8-78); Potassium 4.1 mmol/L (3.5-5.1); Protein, Total 9.2 g/dL (6.0-8.3); Sodium 138 mmol/L (136-145)
[2019-05-01 13:51] LABS: Bacteria/HPF 4+ HPF (None Seen); Bilirubin Negative (Negative); Blood, Urine Trace (Negative); Clarity Turbid (Clear); Glucose, Urine (Dipstick) Greater than 1000 mg/dL (Negative); Leukocyte 500 Leu/uL (Negative); Nitrite Negative (Negative); Protein, Urine (Dipstick) 10 mg/dL (Neg-Trace); RBC/HPF 0-3 HPF (0-3); Squamous Epithelial None Seen HPF (0-3); Urobilinogen Normal mg/dL (Less than 2); WBC/HPF Greater than 50 HPF (0-3)
[2019-05-01 13:52] LABS: Pregnancy Test - Urine (BHCG) Negative (Negative); Pregu Control Background? CLEAR/WHITE (CLR/WHITE); Pregu Control Bar Appear? YES (CONTROL BAR); Specific Gravity 1.016 (1.002-1.036)
[2019-05-01] MEDS ORDERED: Sodium Chloride 0.9% 100 ML ONE (13:54)
[2019-05-01] MEDS ORDERED: cefTRIAXone\\ROCEPHIN 1 GM VIAL ONE (13:54)
[2019-05-01] MEDS ORDERED: Fentanyl 100 MCG/2 ML VIAL ONE (14:11)
[2019-05-01] MEDS ORDERED: Naloxone HCl 2 mg/2 ml Syringe ONE (14:23)
[2019-05-01] MEDS ORDERED: Ondansetron PF 4 MG/2 ML Vial ONE ×2 (14:27→17:58)
--- NOTE | 2019-05-01 16:22 | CT ---
EXAM: Abdomen and pelvic CT scan without contrast: HISTORY: Abdominal pain for several days COMPARISON: 02/09/2019 FINDINGS: There appears to be some diffuse subcutaneous fat stranding as well as some mild generalized mesenter ic fat stranding possibly representing some degree of anasarca although this is stable from prior exam. The visualized lung bases are clear. Liver: Unremarkable. Gallbladder:Status post cholecystectomy. Pancreas:Unremarkable Spleen:Unremarkable. Adrenal glands:Unremarkable. Kidneys:No renal calculus or acute obstruction. No solid or cystic renal mass. No evidence for bowel obstruction. No CT evidence for acute appendicitis. The lack of IV and oral contrast as well as very little intra- abdominal fat lowers sensitivity of this study. The urinary bladder is unremarkable. Reproductive system:Unremarkable No abscess, adenopathy, or abnormal fluid collection within the abdomen or pelvis. IMPRESSION: No significant acute process in the abdomen or pelvis. Other findings as above.
[2019-05-01 16:36] LABS: Lactic Acid 2.5 mmol/L (0.5-2.2)
[2019-05-01] MEDS ORDERED: Acetaminophen 325 MG TAB PO PRN ×2 (18:42→18:51)
[2019-05-01] MEDS ORDERED: Ondansetron ODT 4 MG TAB SL PRN (18:51)
[2019-05-01] MEDS ORDERED: Ondansetron PF 4 MG/2 ML Vial IVP PRN (18:51)
[2019-05-01] MEDS ORDERED: Lactated Ringer's 1,000 ML IV SCH (19:00)
[2019-05-01] MEDS: Sodium Chloride 0.9% 1,000 ML IV SCH (19:28)
[2019-05-01] MEDS: Morphine 2 MG/ML SYRINGE SLOW IVP PRN (19:31)
[2019-05-01] MEDS: Famotidine 20 MG TAB PO SCH (19:31)
[2019-05-01 20:08] VITALS: BMI 19.3
[2019-05-01] MEDS ORDERED: Insulin Regular 300 UNITS/3 ML VIAL SC PRN ×2 (21:58)
[2019-05-01] MEDS ORDERED: Dextrose 5% in Water 1,000 ML IV PRN (21:58)
[2019-05-01] MEDS ORDERED: Dextrose 50% Abboject 50 ML SYRINGE SLOW IVP PRN (21:58)
[2019-05-01] MEDS ORDERED: NPH, Human Insulin Isophane 300 UNIT/3 ML VIAL SC SCH (22:00)
[2019-05-02 04:02] LABS: #Basophils 0.1 thou/uL (0.0-0.2); #Eosinphils 0.2 thou/uL (0.0-0.7); #Lymphocytes 3.6 thou/uL (1.20-3.40); #Monocytes 0.5 thou/uL (0.11-0.59); #Neutrophils 2.9 thou/uL (1.40-6.50); %Basophils 1.1 % (0.0-1.0); %Eosinophils 3.2 % (0.0-10.0); %Lymphocytes 49.8 % (21.0-51.0); %Monocytes 6.4 % (0.0-10.0); %Neutrophils 39.5 % (42.0-75.0); Hemoglobin 9.3 g/dL (12.0-16.0); Mean Corpuscular HGB CONC 34.9 g/dL (32.0-36.0); Mean Corpuscular Volume 83.1 fL (78.0-98.0); Mean Platelet Volume 10.6 fL (7.4-10.4); Platelet Count 141 thou/uL (130-400); RBC Distribution Width 12.3 % (11.5-14.5); White Blood Cell (WBC) Count 7.3 thou/uL (4.8-10.8)
[2019-05-02 04:26] LABS: Anion Gap 9 mmol/L (10-20); BUN (Urea Nitrogen) 12 mg/dL (7.0-18.7); Calc. Creatinine Clearance 80 mL/min (70-130); Calcium 8.3 mg/dL (7.8-10.44); Carbon Dioxide 21 mmol/L (22-29); Chloride 110 mmol/L (98-107); Estimated GFR-MDRD Greater than 90; Glucose 243 mg/dL (70-105); Potassium 4.4 mmol/L (3.5-5.1); Sodium 136 mmol/L (136-145)
[2019-05-02] MEDS: Sodium Chloride 0.9% 1,000 ML IV SCH ×2 (04:46→15:48)
[2019-05-02] MEDS: Morphine 2 MG/ML SYRINGE SLOW IVP PRN ×4 (05:02→22:06)
--- NOTE | 2019-05-02 07:25 | HP ---
CHIEF COMPLAINT: Abdominal pain. HISTORY OF PRESENT ILLNESS: This patient is a 29-year-old female, who has history of recurrent urinary tract infections and pyelonephritis. She presented to the emergency department today reporting that she had bilateral flank pain. She said that she actually felt well yesterday other than being generally tired. Today, she awoke with some generalized discomfort, generalized weakness and felt like she might pass out. She sat down, waited 2 minutes, got up, tried it again, the same thing happened, this occurred on several occasions, so she ultimately decided to present to the emergency department. In the emergency department of note, the patient did receive a dose of 100 mcg of IV fentanyl, at which time she became somewhat apneic and required reversal. The patient has also had some subsequent nausea and vomiting in the emergency department, although presently she says that she is feeling somewhat better. REVIEW OF SYSTEMS: The patient reported the lightheadedness as above. She denied any fevers or chills. She has had no urinary frequency, hesitancy, or dysuria. All other systems reviewed and were negative. PAST MEDICAL HISTORY: Diabetes mellitus type 1, hypertension, peripheral neuropathy, anemia, anxiety, depression, recurrent UTIs, and pyelonephritis. PAST SURGICAL HISTORY: Cholecystectomy, tonsillectomy. FAMILY HISTORY: Father had heart disease. Mother had heart disease and diabetes. Mother had hypertension. SOCIAL HISTORY: Nonsmoker, nondrinker, nondrug user. She is full code. Her mother would be her surrogate decision maker. ALLERGIES: NONE. HOME MEDICATIONS: Pred Forte ophthalmic solution one drop to left eye q.i.d., moxifloxacin one drop left eye q.i.d., insulin 70/30 of 20 units b.i.d., Humulin R 2 units a.c. and at bedtime p.r.n., and gabapentin 100 mg at bedtime. PHYSICAL EXAMINATION: VITAL SIGNS: Temperature 98.4, pulse 121, blood pressure 150/92, and respirations 21 to 22. GENERAL APPEARANCE: Thin age-appropriate female, in no distress. She is age appropriate. Awake and alert. HEENT: PERRL. No OP lesions. NECK: Supple and symmetric. No lymphadenopathy, JVD, or carotid bruits. HEART: Regular rate and rhythm. No murmurs, gallops, or rubs. LUNGS: Clear to auscultation bilaterally. Good chest wall expansion and air exchange. ABDOMEN: Soft and nontender. However, she does have bilateral CVA tenderness, left greater than right with no masses. No organomegaly. PSYCH: Normal affect and behavior. EXTREMITIES: No cyanosis, clubbing, or edema. IMAGING DATA: CT abdomen shows no acute processes. LABORATORY DATA: White count is 9.9, hemoglobin 13.2. Sodium 138, potassium 4.1, chloride 102, BUN 16, creatinine 1.26, GFR 61, glucose 104, lactic acid 5.9, total protein 9.2, and albumin 4.6. Urinalysis shows glucose, trace blood, positive leukocyte esterase, greater than 50 white cells, 4+ bacteria. test negative. Beta-hydroxybutyrate is normal. IMPRESSION AND PLAN: 1. Sepsis secondary to urinary tract infection and pyelonephritis. 2. Pyelonephritis. Continue to cover with Rocephin and follow urine cultures. 3. Adverse reaction to fentanyl with brief period of apnea requiring reversal. We will give her lower dose medications that are slower acting, low-dose morphine as needed. 4. Acute kidney injury. The patient appears to have some stage 3 chronic kidney disease. However, GFR slightly lower than her most recent numbers. We will continue to monitor with hydration. 5. Chronic kidney disease, stage 3. 6. Nausea and vomiting. Unclear if this is related to the medication reaction or from the infection. We will give p.r.n. 7. Given the patient's reaction to medication, we will monitor in the IMCU for now. 8. Diabetes Mellitus. Resume home meds, accuchecks. Job ID: [id number] MTDD
[2019-05-02] MEDS: Famotidine 20 MG TAB PO SCH ×2 (10:14→20:33)
[2019-05-02] MEDS: Enoxaparin Sodium 40 MG/0.4 ML SYRINGE SC SCH (10:15)
[2019-05-02] MEDS: NPH, Human Insulin Isophane 300 UNIT/3 ML VIAL SC SCH ×2 (10:16→20:29)
[2019-05-02] MEDS: cefTRIAXone\\ROCEPHIN 2 GM in Sodium Chloride 0.9% 100 ML IVPB SCH (10:19)
[2019-05-02] MEDS: HumuLIN 70/30 (300 UNITS/3 ML VIAL) SC SCH ×2 (10:25→17:46)
[2019-05-02] MEDS ORDERED: Ondansetron PF 4 MG/2 ML Vial IVP PRN (12:20)
[2019-05-02] MEDS: Gabapentin 100 MG CAP PO SCH (20:33)
--- NOTE | 2019-05-02 23:16 | PDOC.HOSPP ---
- Subjective Encounter Date: 05/02/19 Subjective: Feeling some better. Still has some discomfort. - Objective Vital Signs & Weight: Vital Signs (12 hours) Temp Pulse Resp BP Pulse Ox 05/02/19 22:13 97.9 F 112 H 17 142/92 H 100 05/02/19 20:25 100 05/02/19 19:27 98.5 F 114 H 16 99/66 99 05/02/19 16:00 97.7 F 118 H 16 135/94 H 96 05/02/19 11:20 98.3 F Weight Weight 119 lb 8 oz Most Recent Monitor Data Heart Rate from ECG 111 NIBP 148/97 NIBP BP-Mean 114 Respiration from ECG 8 SpO2 100 I&O: 05/01/19 05/02/19 05/03/19 06:59 06:59 06:59 Intake Total 1382 Output Total 650 Balance 732 Result Diagrams: 05/02/19 03:32 05/02/19 03:32 Additional Labs: Accuchecks 05/02/19 05/02/19 05/02/19 20:30 10:37 06:22 POC Glucose 142 H 151 H 216 H Hospitalist ROS - Medication Medications: Active Medications Generic Name Dose Route Start Last Admin Trade Name Freq PRN Reason Stop Dose Admin Enoxaparin Sodium 40 mg 05/02/19 09:00 05/02/19 10:15 Lovenox SC 40 mg 0900 GARRISON Administration Famotidine 20 mg 05/01/19 21:00 05/02/19 20:33 Pepcid PO 20 mg BID GARRISON Administration Gabapentin 100 mg 05/02/19 21:00 05/02/19 20:33 Neurontin PO 100 mg HS GARRISON Administration Sodium Chloride 1,000 mls @ 100 mls/hr 05/01/19 18:45 05/02/19 15:48 Normal Saline 0.9% IV 1,000 mls .Q10H GARRISON Administration Ceftriaxone Sodium 2 gm/ 100 mls @ 200 mls/hr 05/02/19 09:00 05/02/19 10:19 Sodium Chloride IVPB 100 mls Q24HR GARRISON Administration Insulin Human Isoph/Insulin Regular 20 units 05/02/19 08:00 05/02/19 17:46 Humulin 70/30 SC 20 unit BID- GARRISON Administration Insulin Human NPH 15 unit 05/02/19 09:00 05/02/19 20:29 Humulin N SC 15 unit BID GARRISON Administration Insulin Human Regular 0 units 05/01/19 21:58 05/02/19 06:28 Humulin R SC 4 unit .MODERATE SLIDING SC PRN Administration Moderate Correctional Scale Morphine Sulfate 2 mg 05/01/19 18:41 05/02/19 22:06 Morphine SLOW IVP 2 mg Q4H PRN Administration Moderate to Severe Pain (6-10) Sodium Chloride 10 ml 05/01/19 21:00 05/02/19 22:00 Flush - Normal Saline IVF Not Given Q12HR GARRISON - Exam General Appearance: NAD, awake alert Heart: RRR, no murmur, no gallops, no rubs, normal peripheral pulses Respiratory: CTAB, no wheezes, no rales, no ronchi, normal chest expansion, no tachypnea, normal percussion Gastrointestinal: soft, non-tender, non-distended, normal bowel sounds, no palpable masses, no hepatomegaly, no splenomegaly, no bruit Gastrointestinal - other findings: Mild B CVAT. Extremities: no cyanosis, no clubbing, no edema Skin: normal turgor Musculoskeletal: normal tone Psychiatric: normal affect, normal behavior, A&O x 3 Hosp A/P (1) Adverse reaction to drug in therapeutic use Code(s): T50.905A - ADVERSE EFFECT OF UNSP DRUG/MEDS/BIOL SUBST, INIT Status: Acute (2) Acute pyelonephritis Code(s): N10 - ACUTE PYELONEPHRITIS Status: Acute (3) Diabetes mellitus Code(s): E11.9 - TYPE 2 DIABETES MELLITUS WITHOUT COMPLICATIONS Status: Acute - Plan Continue abx. Follow up cultures. Seems to be tolerating the morphine ok. Blood sugars ok. Transfer to medical floor.
[2019-05-03] MEDS: Morphine 2 MG/ML SYRINGE SLOW IVP PRN ×4 (06:14→20:18)
[2019-05-03] MEDS: Sodium Chloride 0.9% 1,000 ML IV SCH ×3 (06:16→20:22)
[2019-05-03] MEDS: Famotidine 20 MG TAB PO SCH ×2 (08:35→20:19)
[2019-05-03] MEDS: Enoxaparin Sodium 40 MG/0.4 ML SYRINGE SC SCH (08:35)
[2019-05-03] MEDS: cefTRIAXone\\ROCEPHIN 2 GM in Sodium Chloride 0.9% 100 ML IVPB SCH (08:35)
[2019-05-03] MEDS: HumuLIN 70/30 (300 UNITS/3 ML VIAL) SC SCH ×2 (08:36→18:21)
[2019-05-03] MEDS ORDERED: cloNIDine 0.1 MG TAB PO PRN (12:53)
[2019-05-03] MEDS: NPH, Human Insulin Isophane 300 UNIT/3 ML VIAL SC SCH (13:59)
[2019-05-03] MEDS: Gabapentin 100 MG CAP PO SCH (20:19)
--- NOTE | 2019-05-03 21:45 | PDOC.HOSPP ---
- Subjective Encounter Date: 05/03/19 Subjective: DOing ok. Still has a little pain. She feels like her blood sugar is low at times. - Objective Vital Signs & Weight: Vital Signs (12 hours) Temp Pulse Resp BP BP Pulse Ox 05/03/19 19:58 98.3 F 107 H 16 98/61 99 05/03/19 16:00 98.5 F 115 H 16 139/92 H 100 05/03/19 15:36 166/91 H 05/03/19 11:30 97.7 F 116 H 16 169/115 H 100 Weight Weight 119 lb 8 oz Most Recent Monitor Data Heart Rate from ECG 111 NIBP 148/97 NIBP BP-Mean 114 Respiration from ECG 8 SpO2 100 I&O: 05/02/19 05/03/19 05/04/19 06:59 06:59 06:59 Intake Total 1382 1600 1920 Output Total 650 Balance 732 1600 1920 Result Diagrams: 05/02/19 03:32 05/02/19 03:32 Additional Labs: Accuchecks 05/03/19 05/03/19 05/03/19 20:05 16:57 10:58 POC Glucose 169 H 199 H 84 05/03/19 05/03/19 05/03/19 08:41 05:31 00:42 POC Glucose 133 H 250 H 99 05/03/19 00:33 POC Glucose 63 L Hospitalist ROS - Medication Medications: Active Medications Generic Name Dose Route Start Last Admin Trade Name Freq PRN Reason Stop Dose Admin Acetaminophen 650 mg 05/01/19 18:42 05/03/19 20:22 Tylenol PO 650 mg Q6H PRN Administration Mild-Moderate Pain (1-5) Enoxaparin Sodium 40 mg 05/02/19 09:00 05/03/19 08:35 Lovenox SC 40 mg 0900 GARRISON Administration Famotidine 20 mg 05/01/19 21:00 05/03/19 20:19 Pepcid PO 20 mg BID GARRISON Administration Gabapentin 100 mg 05/02/19 21:00 05/03/19 20:19 Neurontin PO 100 mg HS GARRISON Administration Sodium Chloride 1,000 mls @ 100 mls/hr 05/01/19 18:45 05/03/19 20:22 Normal Saline 0.9% IV 1,000 mls .Q10H GARRISON Administration Ceftriaxone Sodium 2 gm/ 100 mls @ 200 mls/hr 05/02/19 09:00 05/03/19 08:35 Sodium Chloride IVPB 100 mls Q24HR GARRISON Administration Insulin Human Isoph/Insulin Regular 20 units 05/02/19 08:00 05/03/19 18:21 Humulin 70/30 SC 20 unit BID-WM GARRISON Administration Insulin Human Regular 0 units 05/01/19 21:58 05/02/19 06:28 Humulin R SC 4 unit .MODERATE SLIDING SC PRN Administration Moderate Correctional Scale Insulin Human Regular 0 units 05/01/19 21:58 05/03/19 06:10 Humulin R SC 2 unit .BEDTIME SLIDING SC PRN Administration Bedtime Correctional Scale Morphine Sulfate 2 mg 05/01/19 18:41 05/03/19 20:18 Morphine SLOW IVP 2 mg Q4H PRN Administration Moderate to Severe Pain (6-10) Sodium Chloride 10 ml 05/01/19 21:00 05/03/19 08:40 Flush - Normal Saline IVF 10 ml Q12HR GARRISON Administration - Exam General Appearance: NAD, awake alert Heart: RRR, no murmur, no gallops, no rubs, normal peripheral pulses Heart - other findings: Tachy Gastrointestinal: soft, non-tender, non-distended, normal bowel sounds, no palpable masses, no hepatomegaly, no splenomegaly, no bruit Gastrointestinal - other findings: Mild CVAT Extremities: no cyanosis, no clubbing, no edema Skin: normal turgor, no lesions, no rashes Musculoskeletal: normal tone Psychiatric: normal affect, normal behavior, A&O x 3 Hosp A/P (1) Adverse reaction to drug in therapeutic use Code(s): T50.905A - ADVERSE EFFECT OF UNSP DRUG/MEDS/BIOL SUBST, INIT Status: Acute (2) Acute pyelonephritis Code(s): N10 - ACUTE PYELONEPHRITIS Status: Acute (3) Diabetes mellitus Code(s): E11.9 - TYPE 2 DIABETES MELLITUS WITHOUT COMPLICATIONS Status: Acute - Plan Continue abx. Follow up cultures. GNR. Seems to be tolerating the morphine ok. Blood sugars ok. Has been getting NPH and 70/30 in am. Will change back to her home regimen only. Hope to get sensitivities and change to po for DC tomorrow.
[2019-05-04] MEDS ORDERED: traMADol HCl 50 MG TAB PO PRN (07:24)
[2019-05-04] MEDS: Sodium Chloride 0.9% 1,000 ML IV SCH (07:27)
[2019-05-04] MEDS: Famotidine 20 MG TAB PO SCH (08:40)
[2019-05-04] MEDS: cefTRIAXone\\ROCEPHIN 2 GM in Sodium Chloride 0.9% 100 ML IVPB SCH (08:40)
[2019-05-04] MEDS: Enoxaparin Sodium 40 MG/0.4 ML SYRINGE SC SCH (08:40)
[2019-05-04] MEDS: HumuLIN 70/30 (300 UNITS/3 ML VIAL) SC SCH (08:42)
[2019-05-04 11:28] VITALS: BP 162/85; TEMP 97.7
--- NOTE | 2019-05-05 04:50 | PQF ---
OZZIE Nguyen MD [id number] CLINICAL DOCUMENTATION CLARIFICATION FORM: POST DISCHARGE Addendum to original discharge summary date: ____ Late entry note date: __ DATE: 05/05/2019 ATTN: Ozzie Mancini Please exercise your independent, professional judgment in responding to the clarification form. Clinical indicators are provided on the bottom of this form for your review Please check appropriate box(es): [ ] Sepsis due to Acute Pyelonephritis [ ] Severe sepsis with acute organ dysfunction of: Acute Kidney Injury [ ] Septic Shock [ ] Localized infection without sepsis [ ] Other diagnosis [ ] Unable to determine For continuity of documentation, please document condition throughout progress notes and discharge summary. Thank You. CLINICAL INDICATORS - SIGNS / SYMPTOMS / LABS Laboratory 05/01 WBC9.9, Neutrophils 50.6, Lymphocytes 4.0, Lactic Acid 5.9 Microbiology 05/01 Urine positive for E. Coli Vital signs 05/01 BP87/53, Pulse 133, Resp 26, Temp 98.1 ED notes p2 05/01 SIRS scoring: Yes, pt did meet criteria ED notes p10 05/01 Pyelonephritis, Septic Shock H&P p1 05/01 Dr Guevara presented to the ED today reporting that she had bilateral flank pain H&P p1 05/01 Dr Guevara She awoke with some generalized discomfort, generalized weakness and felt she might pass out H&P p2 05/01 Dr Guevara Sepsis secondary to urinary tract infection and pyelonephritis H&P p1 05/01 Dr Guevara Acute kidney injury RISK FACTORS H&P p1 05/01 history of URI and Pyelonephritis H&P p1 05/01 DM type 1 H&P p1 05/01 HTN H&P p1 05/01 Peripheral neuropathy H&P p2 05/01 CKD 3 TREATMENTS: MAY 09 IV Rocephin 1gm MAY 09 IV Morphine 2mg MAY 09 IVF 1L UA ordered 05/01 Urine Culture ordered 05/01 Blood Culture ordered 05/01 (This form is maintained as a part of the permanent medical record) 2014 [email or web address]. All Rights Reserved [email or web address]
== END 2019-05-04 13:40 | disposition home or self-care (01) | DRG 690 ==
LOC: ERS 12:45 → SURG A 18:37 → IMCU/EMU 18:49 → SURG A 05-02 15:57
PROVIDERS: ADMIT Internal Medicine; ATTEND Internal Medicine
DX: N10 Acute pyelonephritis (principal); N17.9 Acute kidney failure, unspecified; T40.4X5A Adverse effect of other synthetic narcotics, initial encounter; R06.81 Apnea, not elsewhere classified; N18.3 Chronic kidney disease, stage 3 (moderate); I12.9 Hypertensive chronic kidney disease with stage 1 through stage 4 chronic kidney disease, or unspecified chronic kidney disease; F32.9 Major depressive disorder, single episode, unspecified; E10.42 Type 1 diabetes mellitus with diabetic polyneuropathy; E10.22 Type 1 diabetes mellitus with diabetic chronic kidney disease; B96.20 Unspecified Escherichia coli [E. coli] as the cause of diseases classified elsewhere; Z87.440 Personal history of urinary (tract) infections; Z79.899 Other long term (current) drug therapy; Z79.4 Long term (current) use of insulin; Z90.49 Acquired absence of other specified parts of digestive tract; Z28.21 Immunization not carried out because of patient refusal
CPT/HCPCS: 36415; 36416; 74176; 80048; 80053; 81003; 81015; 81025; 82010; 83605; 83690; 85025; 87040; 87077; 87086; 87186; 94760; 96361; 96365; 96375; 96376; J0696; J1650; J1815; J2270; J2310; J2405; J3010; J3490

== ENCOUNTER 2019-05-10 18:33 | Emergency (ER) | payer SELFPAY ==
[2019-05-10 20:08] LABS: #Basophils 0.1 thou/uL (0.0-0.2); #Eosinphils 0.1 thou/uL (0.0-0.7); #Lymphocytes 2.5 thou/uL (1.20-3.40); #Monocytes 0.4 thou/uL (0.11-0.59); %Basophils 1.9 % (0.0-1.0); %Eosinophils 1.5 % (0.0-10.0); %Lymphocytes 49.7 % (21.0-51.0); %Monocytes 7.7 % (0.0-10.0); %Neutrophils 39.3 % (42.0-75.0); Hemoglobin 10.5 g/dL (12.0-16.0); Mean Corpuscular HGB CONC 34.3 g/dL (32.0-36.0); Mean Corpuscular Hemoglobin 28.6 pg (27.0-31.0); Mean Corpuscular Volume 83.4 fL (78.0-98.0); Mean Platelet Volume 9.3 fL (7.4-10.4); Platelet Count 166 thou/uL (130-400); RBC Distribution Width 12.8 % (11.5-14.5); Red Blood Cell (RBC) Count 3.66 mill/uL (4.20-5.40)
[2019-05-10 20:23] LABS: BHCG - Serum Negative (NEGATIVE); Pregs Control Background? CLEAR/WHITE (CLR/WHITE); Pregs Control Bar Appear? YES (CONTROL BAR)
[2019-05-10 20:31] LABS: ALT (SGPT) 49 U/L (8-55); AST (SGOT) 22 U/L (5-34); Albumin 3.8 g/dL (3.5-5.0); Alkaline Phosphatase 89 U/L (40-110); Anion Gap 12 mmol/L (10-20); BUN (Urea Nitrogen) 14 mg/dL (7.0-18.7); Bilirubin, Total 0.4 mg/dL (0.2-1.2); Calc. Creatinine Clearance 0 mL/min (70-130); Calcium 9.2 mg/dL (7.8-10.44); Carbon Dioxide 27 mmol/L (22-29); Chloride 101 mmol/L (98-107); Estimated GFR-MDRD 64; Globulin 3.8 g/dL (2.4-3.5); Glucose 397 mg/dL (70-105); Potassium 4.2 mmol/L (3.5-5.1); Protein, Total 7.6 g/dL (6.0-8.3); Sodium 136 mmol/L (136-145)
[2019-05-10 20:46] LABS: Thyroid Stimulating Hormone 1.4858 uIU/mL (0.35-4.94)
[2019-05-10 21:28] LABS: Bilirubin Negative (Negative); Blood, Urine Trace (Negative); Glucose, Urine (Dipstick) >=1000 mg/dL (Negative); Leukocyte Negative (Negative); Nitrite Negative (Negative); Protein, Urine (Dipstick) 30 mg/dL (Neg-Trace); Urobilinogen 0.2 mg/dL (Less than 2)
[2019-05-10 21:29] LABS: Clarity Clear (Clear)
[2019-05-10 21:33] LABS: Bacteria/HPF None Seen HPF (None Seen); RBC/HPF 0-3 HPF (0-3); Squamous Epithelial 0-3 HPF (0-3); WBC/HPF 0-3 HPF (0-3)
[2019-05-10] MEDS ORDERED: Ketorolac Tromethamine 30 MG/ML VIAL ONE (21:57)
[2019-05-10] MEDS ORDERED: HYDROcodone/Acetaminophen 5/325 mg Tablet ONE (22:58)
--- NOTE | 2019-05-11 06:59 | RAD ---
1 VIEW PELVIS: Date: 05/10/2019 HISTORY: Injury after a fall. FINDINGS: No fracture or dislocation is visualized on this exam. Phleboliths overlie the right hemipelvis. IMPRESSION: No acute osseous abnormality. If there is pain localized to either hip, dedicated views of that hip a re recommended for further evaluation. POS: OFF
== END 2019-05-11 00:13 | disposition home or self-care (01) ==
LOC: ERS 18:33
DX: S70.02XA Contusion of left hip, initial encounter (principal); M54.5 Low back pain; M54.2 Cervicalgia; E10.9 Type 1 diabetes mellitus without complications; I10 Essential (primary) hypertension; F41.9 Anxiety disorder, unspecified; F32.9 Major depressive disorder, single episode, unspecified; Z79.4 Long term (current) use of insulin; Z79.899 Other long term (current) drug therapy; W18.30XA Fall on same level, unspecified, initial encounter
CPT/HCPCS: 36415; 72170; 80053; 81003; 81015; 82550; 84443; 84703; 85025; 87804; 93005; J1885

== ENCOUNTER 2020-07-19 16:57 | Inpatient (IN) | payer SELFPAY ==
[~2020-07-19 16:57] MED LIST changes: -Iopamidol 370 76% 100 ML VIAL ONE; +Iopamidol-370 76% 500 ML 1 ML ONE
[2020-07-19 17:47] LABS: Actual Bicarbonate (HCO3v) 18 mEq/L (22-28); Analyzer IN Cardio ER; Base Excess -6.6 mEq/L (-2.0 to +3.0); Calcium, Ionized (venous) 1.09 mmol/L (1.16-1.32); Chloride (VBG) 99 mmol/L (98-106); Hemoglobin (Hb) 12.8 g/dL (11.7-15.5); Potassium (VBG) 3.65 mmol/L (3.70-5.30); Sodium 132.2 mmol/L (133-146); pH (venous) 7.36 (7.32-7.43)
[2020-07-19] MEDS ORDERED: Acetaminophen 500 MG TAB ONE (17:47)
[2020-07-19] MEDS ORDERED: Metoclopramide HCl 10 MG/2 ML VIAL ONE (17:47)
[2020-07-19] MEDS ORDERED: diphenhydrAMINE 50 MG/ML VIAL ONE (17:47)
[2020-07-19 17:48] LABS: #Basophils 0.1 thou/uL (0.0-0.2); #Eosinphils 0.1 thou/uL (0.0-0.7); #Monocytes 0.5 thou/uL (0.11-0.59); #Neutrophils 5.4 thou/uL (1.40-6.50); %Basophils 0.6 % (0.0-1.0); %Eosinophils 0.7 % (0.0-10.0); %Lymphocytes 33.2 % (21.0-51.0); %Monocytes 5.6 % (0.0-10.0); %Neutrophils 59.8 % (42.0-75.0); Hemoglobin 11.8 g/dL (12.0-16.0); Mean Corpuscular HGB CONC 33.6 g/dL (32.0-36.0); Mean Corpuscular Hemoglobin 27.6 pg (27.0-31.0); Platelet Count 239 thou/uL (130-400); RBC Distribution Width 12.5 % (11.5-14.5); Red Blood Cell (RBC) Count 4.27 mill/uL (4.20-5.40)
[2020-07-19 17:57] LABS: BHCG - Serum Negative (NEGATIVE); Pregs Control Background? CLEAR/WHITE (CLR/WHITE); Pregs Control Bar Appear? YES (CONTROL BAR)
[2020-07-19 18:06] LABS: ALT (SGPT) 23 U/L (8-55); AST (SGOT) 21 U/L (5-34); Albumin 4.2 g/dL (3.5-5.0); Alkaline Phosphatase 123 U/L (40-110); Anion Gap 18 mmol/L (10-20); BUN (Urea Nitrogen) 13 mg/dL (7.0-18.7); Bilirubin, Total 1.4 mg/dL (0.2-1.2); Calc. Creatinine Clearance 0 mL/min (70-130); Calcium 9.9 mg/dL (7.8-10.44); Carbon Dioxide 21 mmol/L (22-29); Chloride 98 mmol/L (98-107); Glucose 437 mg/dL (70-105); Magnesium 2.1 mg/dL (1.6-2.6); Potassium 3.7 mmol/L (3.5-5.1); Protein, Total 9.2 g/dL (6.0-8.3); Sodium 133 mmol/L (136-145)
[2020-07-19 18:07] LABS: Lipase 47 U/L (8-78); Phosphorus 4.3 mg/dL (2.3-4.7)
[2020-07-19] MEDS ORDERED: Morphine 4 MG/ML VIAL ONE (18:36)
[2020-07-19] MEDS ORDERED: Insulin Regular 300 UNITS/3 ML VIAL ONE (18:36)
[2020-07-19] MEDS ORDERED: Ketorolac Tromethamine 30 MG/ML VIAL ONE (18:36)
[2020-07-19 18:46] LABS: Bacteria/HPF None Seen HPF (None Seen); Bilirubin Negative (Negative); Blood, Urine 1+ (Negative); Clarity Clear (Clear); Glucose, Urine (Dipstick) Greater than 1000 mg/dL (Negative); Ketone, Urine 10 mg/dL (Negative); Leukocyte 500 Leu/uL (Negative); Nitrite Negative (Negative); Protein, Urine (Dipstick) 30 mg/dL (Neg-Trace); RBC/HPF 0-3 HPF (0-3); Specific Gravity, Urine 1.019 (1.002-1.036); Squamous Epithelial 0-3 HPF (0-3); Urobilinogen Normal mg/dL (Less than 2); WBC/HPF Greater than 50 HPF (0-3); pH, Urine 5.5 (5.0-9.0)
[2020-07-19 19:17] LABS: Free T4 (Free Thyroxine) 2.34 ng/dL (0.70-1.48); Thyroid Stimulating Hormone 0.0418 uIU/mL (0.35-4.94)
[2020-07-19] MEDS ORDERED: cefTRIAXone\\ROCEPHIN 1 GM VIAL ONE (19:17)
[2020-07-19] MEDS ORDERED: Dexamethasone 10 MG/ML VIAL ONE (19:53)
[2020-07-19] MEDS ORDERED: Methimazole 10 MG TAB PO SCH (20:00)
[2020-07-19] MEDS ORDERED: Ondansetron PF 4 MG/2 ML Vial IVP PRN (20:40)
[2020-07-19] MEDS ORDERED: Dextrose 5% in Water 1,000 ML IV PRN (20:40)
[2020-07-19] MEDS ORDERED: Acetaminophen 325 MG TAB PO PRN (20:40)
[2020-07-19] MEDS ORDERED: Ondansetron ODT 4 MG TAB PO PRN (20:40)
[2020-07-19] MEDS ORDERED: Dextrose 50% Abboject 50 ML SYRINGE SLOW IVP PRN (20:40)
[2020-07-19] MEDS ORDERED: Labetalol HCl 100 MG/20 ML VIAL SLOW IVP PRN (20:54)
[2020-07-19 21:49] LABS: SARS-CoV-2 NAA Rapid Test Not Detected (NotDetected)
[2020-07-19 22:02] LABS: Hemoglobin A1c Greater than 14.0 % (4.0-6.0)
[2020-07-19] MEDS: Lactated Ringer's 1,000 ML IV SCH (23:23)
[2020-07-19 23:29] VITALS: BMI 20.4
[2020-07-20] MEDS: HumaLOG 300 UNITS/3 ML VIAL SC PRN ×6 (00:07→20:37)
[2020-07-20] MEDS ORDERED: Gabapentin 300 MG CAP PO SCH ×2 (00:15→20:30)
[2020-07-20] MEDS ORDERED: Acetaminophen 500 MG TAB PO SCH ×2 (00:15→22:15)
[2020-07-20 00:44] LABS: Lactic Acid 1.3 mmol/L (0.5-2.2)
[2020-07-20] MEDS: Lactated Ringer's 1,000 ML IV SCH ×6 (03:36→22:52)
[2020-07-20 04:30] LABS: #Lymphocytes 1.1 thou/uL (1.20-3.40); #Monocytes 0.1 thou/uL (0.11-0.59); #Neutrophils 5.9 thou/uL (1.40-6.50); %Basophils 0.3 % (0.0-1.0); %Lymphocytes 15.1 % (21.0-51.0); %Monocytes 1.4 % (0.0-10.0); %Neutrophils 83.2 % (42.0-75.0); Hemoglobin 10.6 g/dL (12.0-16.0); Mean Corpuscular HGB CONC 32.5 g/dL (32.0-36.0); Mean Corpuscular Hemoglobin 27.5 pg (27.0-31.0); Mean Corpuscular Volume 84.5 fL (78.0-98.0); Mean Platelet Volume 11.6 fL (7.4-10.4); Platelet Count 131 thou/uL (130-400); RBC Distribution Width 12.6 % (11.5-14.5); Red Blood Cell (RBC) Count 3.86 mill/uL (4.20-5.40); White Blood Cell (WBC) Count 7.1 thou/uL (4.8-10.8)
[2020-07-20 04:40] LABS: Anion Gap 16 mmol/L (10-20); BUN (Urea Nitrogen) 17 mg/dL (7.0-18.7); Calc. Creatinine Clearance 58 mL/min (70-130); Carbon Dioxide 17 mmol/L (22-29); Chloride 106 mmol/L (98-107); Glucose 366 mg/dL (70-105); Potassium 3.9 mmol/L (3.5-5.1); Sodium 135 mmol/L (136-145)
[2020-07-20] MEDS ORDERED: Atenolol 25 MG TAB PO SCH (09:00)
[2020-07-20 09:35] LABS: Amphetamine Not Detected (NotDetected); Barbiturates Screen Not Detected (NotDetected); Benzodiazepine Screen Not Detected (NotDetected); Cocaine Metabolite Screen Not Detected (NotDetected); Medtox Control Line Valid? VALID (VALID); Medtox Reader # READER 4; Methadone Not Detected (NotDetected); Methamphetamine Not Detected (NotDetected); Opiate Screen Not Detected (NotDetected); Oxycodone Screen Not Detected (NotDetected); Phencyclidine (PCP) Not Detected (NotDetected); THC/Cannabinoid Screen Not Detected (NotDetected); Tricyclic Screen Not Detected (NotDetected)
[2020-07-20] MEDS: Atenolol 50 MG TAB PO SCH (09:49)
[2020-07-20] MEDS: Amlodipine 5 MG TAB PO SCH (09:49)
[2020-07-20] MEDS: Methimazole 10 MG TAB PO SCH (09:49)
[2020-07-20] MEDS: HumuLIN 70/30 (300 UNITS/3 ML VIAL) SC SCH (09:49)
[2020-07-20] MEDS ORDERED: NPH, Human Insulin Isophane 300 UNIT/3 ML VIAL SC SCH ×2 (11:30→21:00)
[2020-07-20] MEDS ORDERED: HumaLOG 300 UNITS/3 ML VIAL SC PRN (11:59)
[2020-07-20] MEDS ORDERED: HumuLIN 70/30 (300 UNITS/3 ML VIAL) SC SCH (21:00)
[2020-07-20] MEDS ORDERED: Cyclobenzaprine 10 MG TAB PO SCH (22:15)
[2020-07-20] MEDS ORDERED: Melatonin 3 MG TAB PO SCH (22:45)
[2020-07-21] MEDS: HumaLOG 300 UNITS/3 ML VIAL SC PRN (03:46)
[2020-07-21 04:15] LABS: Anion Gap 13 mmol/L (10-20); BUN (Urea Nitrogen) 17 mg/dL (7.0-18.7); Calc. Creatinine Clearance 75 mL/min (70-130); Calcium 8.7 mg/dL (7.8-10.44); Carbon Dioxide 20 mmol/L (22-29); Chloride 110 mmol/L (98-107); Glucose 279 mg/dL (70-105); Potassium 3.8 mmol/L (3.5-5.1); Sodium 139 mmol/L (136-145)
[2020-07-21 04:27] LABS: Eosinophils 1 % (0-10); Hemoglobin 9.1 g/dL (12.0-16.0); Hypochromia SLIGHT = 6-15 cells (100X) (0-5/hpf); Lymphocytes 42 % (21-51); MDiff Complete? YES; Mean Corpuscular HGB CONC 34.4 g/dL (32.0-36.0); Mean Corpuscular Hemoglobin 28.8 pg (27.0-31.0); Mean Corpuscular Volume 83.5 fL (78.0-98.0); Mean Platelet Volume 10.1 fL (7.4-10.4); Monocytes 5 % (0-10); Neutrophil 52 % (42-75); Platelet Count 157 thou/uL (130-400); Platelet Morphology Comment Appears Adequate; Red Blood Cell (RBC) Count 3.17 mill/uL (4.20-5.40); White Blood Cell (WBC) Count 9.3 thou/uL (4.8-10.8)
[2020-07-21 07:11] VITALS: TEMP 98.2
[2020-07-21] MEDS: Methimazole 10 MG TAB PO SCH (08:44)
[2020-07-21] MEDS: Atenolol 50 MG TAB PO SCH (08:44)
[2020-07-21] MEDS: Amlodipine 5 MG TAB PO SCH (08:44)
[2020-07-21] MEDS: HumuLIN 70/30 (300 UNITS/3 ML VIAL) SC SCH (08:44)
[2020-07-21] MEDS ORDERED: NPH, Human Insulin Isophane 300 UNIT/3 ML VIAL SC SCH ×2 (08:45→09:00)
== END 2020-07-21 11:35 | disposition home or self-care (01) | DRG 644 ==
LOC: ERS 16:57 → IMCU/EMU 20:21
PROVIDERS: ADMIT Family Medicine; ATTEND Family Medicine
DX: E05.90 Thyrotoxicosis, unspecified without thyrotoxic crisis or storm (principal); N17.9 Acute kidney failure, unspecified; I10 Essential (primary) hypertension; E10.65 Type 1 diabetes mellitus with hyperglycemia; R00.0 Tachycardia, unspecified; F32.9 Major depressive disorder, single episode, unspecified; F41.9 Anxiety disorder, unspecified; Z87.440 Personal history of urinary (tract) infections; Z79.4 Long term (current) use of insulin; Z90.49 Acquired absence of other specified parts of digestive tract; Z89.411 Acquired absence of right great toe; Z98.49 Cataract extraction status, unspecified eye; Z83.3 Family history of diabetes mellitus; Z82.49 Family history of ischemic heart disease and other diseases of the circulatory system
CPT/HCPCS: 0240U; 36415; 36416; 71045; 71275; 80048; 80053; 80306; 81003; 81015; 82010; 82550; 82805; 83036; 83605; 83690; 83735; 84100; 84145; 84238; 84439; 84443; 84481; 84484; 84703; 85025; 85379; 87040; 87077; 87086; 93005; 94760; 96365; 96375; J0696; J1100; J1200; J1800; J1815; J1885; J2270; J2765; Q9967

== ENCOUNTER 2024-10-13 12:37 | Inpatient (IN) | payer OTHER ==
[2024-10-13 13:05] LABS: #Basophils 0.03 10x3/uL (0.0-0.2); #Eosinophils 0.10 10x3/uL (0.0-0.7); #Monocytes 0.28 10x3/uL (0.11-0.59); #Neutrophils 5.92 10x3/uL (1.40-6.50); %Basophils 0.4 % (0.0-1.0); %Eosinophils 1.3 % (0.0-10.0); %Lymphocytes 19.9 % (21.0-51.0); %Monocytes 3.5 % (0.0-10.0); %Neutrophils 74.5 % (42.0-75.0); Hematocrit 30.6 % (36.0-47.0); Hemoglobin 10.6 g/dL (12.0-16.0); Mean Corpuscular Hemoglobin 27.3 pg (27.0-31.0); Mean Corpuscular Volume 78.9 fL (78.0-98.0); Platelet Count 212 10x3/uL (130-400); Red Blood Cell (RBC) Count 3.88 mill/uL (4.20-5.40); White Blood Cell (WBC) Count 7.94 10x3/uL (4.8-10.8)
[2024-10-13 13:15] LABS: Base Excess -6.6 mEq/L (-2.0 to +3.0); Calcium, Ionized (venous) 1.08 mmol/L (1.16-1.32); Chloride (VBG) 105 mmol/L (98-106); Hematocrit-VBG 32 % (36.0-47.0); Hemoglobin (Hb) 11.0 g/dL (11.7-15.5); Potassium (VBG) 4.41 mmol/L (3.70-5.30); Sodium 137 mmol/L (133-146)
[2024-10-13 13:17] LABS: Actual Bicarbonate (HCO3v) 14.1 mEq/L (22-28)
[2024-10-13 13:26] LABS: ALT (SGPT) 23 U/L (Less than 34); AST (SGOT) 24 U/L (11-34); Albumin 3.7 g/dL (3.1-4.5); Alkaline Phosphatase 86 U/L (40-110); Anion Gap 21 mmol/L (10-20); BUN (Urea Nitrogen) 32 mg/dL (7.0-18.7); Bilirubin, Total 0.6 mg/dL (0.3-1.2); Calc. Creatinine Clearance 0 mL/min (70-130); Calcium 9.4 mg/dL (7.8-10.44); Carbon Dioxide 13 mmol/L (22-29); Chloride 105 mmol/L (98-107); Globulin 4.6 g/dL (2.4-3.5); Glucose 393 mg/dL (70-105); Lipase 34 U/L (8-78); Magnesium 1.6 mg/dL (1.6-2.6); Potassium 4.6 mmol/L (3.5-5.1); Sodium 134 mmol/L (136-145)
[2024-10-13] MEDS ORDERED: INSULIN REGULAR IN 0.9 % NACL 100 ML ONE (14:05)
[2024-10-13] MEDS ORDERED: HYDROmorphone 0.5 MG/0.5 ML SYRINGE ONE (14:05)
[2024-10-13] MEDS ORDERED: NS 0.9% w/ 20 MEQ KCL 1,000 ML IV PRN ×2 (14:07)
[2024-10-13] MEDS ORDERED: Electrolyte Replacement Protocol 1 EACH IVPB PRN (14:07)
[2024-10-13] MEDS ORDERED: Acetaminophen 325 MG TAB PO PRN (14:07)
[2024-10-13] MEDS ORDERED: INSULIN REGULAR IN 0.9 % NACL 100 ML IVPB SCH (14:15)
[2024-10-13] MEDS ORDERED: Prochlorperazine 10 MG/2 ML VIAL ONE (14:16)
[2024-10-13 14:41] LABS: Troponin I 0.018 ng/mL (< 0.028)
[2024-10-13 15:04] LABS: BHCG - Serum Negative (NEGATIVE); Pregs Control Background? CLEAR/WHITE (CLR/WHITE); Pregs Control Bar Appear? YES (CONTROL BAR)
[2024-10-13 15:17] LABS: Anion Gap 20 mmol/L (10-20); BUN (Urea Nitrogen) 28 mg/dL (7.0-18.7); Calc. Creatinine Clearance 0 mL/min (70-130); Calcium 9.0 mg/dL (7.8-10.44); Carbon Dioxide 14 mmol/L (22-29); Chloride 106 mmol/L (98-107); Glucose 359 mg/dL (70-105); Magnesium 1.4 mg/dL (1.6-2.6); Potassium 3.8 mmol/L (3.5-5.1); Sodium 136 mmol/L (136-145)
[2024-10-13] MEDS ORDERED: Magnesium 2 GM/50 ML(in water) 2 GM in Premix 1 BAG IVPB SCH (16:00)
[2024-10-13] MEDS ORDERED: NS 0.9% w/ 20 MEQ KCL 1,000 ML ONE (16:08)
[2024-10-13] MEDS: Heparin 5,000 UNITS/ML VIAL SC SCH (17:34)
[2024-10-13] MEDS: Metoprolol Tartrate 5 MG (5 mL) VIAL IVP SCH (17:34)
[2024-10-13] MEDS: Potassium Phosphate 30 MMOL in Sodium Chloride 0.9% 250 ML 250 ML IVPB SCH (17:35)
[2024-10-13] MEDS: Magnesium Sulfate In Water 4 GM in Premix 1 BAG IVPB SCH (17:36)
[2024-10-13 17:53] LABS: Anion Gap 15 mmol/L (10-20); BUN (Urea Nitrogen) 31 mg/dL (7.0-18.7); Calc. Creatinine Clearance 0 mL/min (70-130); Calcium 8.9 mg/dL (7.8-10.44); Carbon Dioxide 17 mmol/L (22-29); Chloride 110 mmol/L (98-107); Glucose 199 mg/dL (70-105); Potassium 3.7 mmol/L (3.5-5.1); Sodium 138 mmol/L (136-145)
[2024-10-13] MEDS: D5 1/2 NS w/20 mEq KCL 1,000 ML IV PRN (18:14)
[2024-10-13 19:13] VITALS: BMI 23.6
[2024-10-13 21:47] LABS: Anion Gap 15 mmol/L (10-20); BUN (Urea Nitrogen) 28 mg/dL (7.0-18.7); Calc. Creatinine Clearance 22 mL/min (70-130); Calcium 8.4 mg/dL (7.8-10.44); Carbon Dioxide 17 mmol/L (22-29); Chloride 110 mmol/L (98-107); Glucose 130 mg/dL (70-105); Potassium 4.4 mmol/L (3.5-5.1); Sodium 138 mmol/L (136-145)
[2024-10-14 00:57] LABS: Anion Gap 18 mmol/L (10-20); BUN (Urea Nitrogen) 30 mg/dL (7.0-18.7); Calc. Creatinine Clearance 21 mL/min (70-130); Calcium 8.3 mg/dL (7.8-10.44); Carbon Dioxide 17 mmol/L (22-29); Chloride 109 mmol/L (98-107); Glucose 129 mg/dL (70-105); Magnesium 2.9 mg/dL (1.6-2.6); Potassium 4.5 mmol/L (3.5-5.1); Sodium 139 mmol/L (136-145)
[2024-10-14 01:58] LABS: Anion Gap 15 mmol/L (10-20); BUN (Urea Nitrogen) 29 mg/dL (7.0-18.7); Calc. Creatinine Clearance 22 mL/min (70-130); Calcium 7.7 mg/dL (7.8-10.44); Carbon Dioxide 17 mmol/L (22-29); Chloride 108 mmol/L (98-107); Glucose 229 mg/dL (70-105); Potassium 4.6 mmol/L (3.5-5.1); Sodium 135 mmol/L (136-145)
[2024-10-14] MEDS: Ondansetron PF 4 MG/2 ML Vial IVP PRN (04:14)
[2024-10-14 05:01] LABS: #Basophils Less than 0.03 10x3/uL (0.0-0.2); #Eosinophils 0.07 10x3/uL (0.0-0.7); #Monocytes 0.56 10x3/uL (0.11-0.59); #Neutrophils 5.07 10x3/uL (1.40-6.50); %Basophils 0.2 % (0.0-1.0); %Eosinophils 0.9 % (0.0-10.0); %Lymphocytes 28.7 % (21.0-51.0); %Monocytes 6.9 % (0.0-10.0); %Neutrophils 62.9 % (42.0-75.0); Hematocrit 22.3 % (36.0-47.0); Hemoglobin 7.3 g/dL (12.0-16.0); Mean Corpuscular Hemoglobin 27.0 pg (27.0-31.0); Mean Corpuscular Volume 82.6 fL (78.0-98.0); Platelet Count 139 10x3/uL (130-400); Red Blood Cell (RBC) Count 2.70 mill/uL (4.20-5.40); White Blood Cell (WBC) Count 8.06 10x3/uL (4.8-10.8)
[2024-10-14] MEDS: Dextrose 50% Abboject 50 ML SYRINGE SLOW IVP PRN (05:06)
[2024-10-14 05:32] LABS: ALT (SGPT) 14 U/L (Less than 34); AST (SGOT) 13 U/L (11-34); Albumin 2.6 g/dL (3.1-4.5); Alkaline Phosphatase 59 U/L (40-110); Anion Gap 13 mmol/L (10-20); BUN (Urea Nitrogen) 24 mg/dL (7.0-18.7); Bilirubin, Total 0.3 mg/dL (0.3-1.2); Calc. Creatinine Clearance 24 mL/min (70-130); Calcium 7.5 mg/dL (7.8-10.44); Carbon Dioxide 16 mmol/L (22-29); Chloride 109 mmol/L (98-107); Globulin 3.0 g/dL (2.4-3.5); Glucose 340 mg/dL (70-105); Magnesium 2.2 mg/dL (1.6-2.6); Potassium 5.1 mmol/L (3.5-5.1); Sodium 133 mmol/L (136-145)
[2024-10-14] MEDS: Sodium Bicarb 50 MEQ/50 ML Abboject 8.4% SYRINGE IVP SCH (06:11)
[2024-10-14 09:18] LABS: Anion Gap 14 mmol/L (10-20); BUN (Urea Nitrogen) 27 mg/dL (7.0-18.7); Calc. Creatinine Clearance 23 mL/min (70-130); Calcium 7.9 mg/dL (7.8-10.44); Carbon Dioxide 19 mmol/L (22-29); Chloride 109 mmol/L (98-107); Glucose 144 mg/dL (70-105); Potassium 4.3 mmol/L (3.5-5.1); Sodium 138 mmol/L (136-145)
[2024-10-14 09:20] LABS: Iron 69 ug/dL (50-170); Iron Binding Capacity, Total 184 mcg/dL (265-497)
[2024-10-14] MEDS ORDERED: Glucagon 1 MG/ML KIT IM PRN (09:39)
[2024-10-14] MEDS: Sodium Bicarbonate 75 MEQ in Dextrose 5 %-0.45 % NaCl 1,000 ML IV SCH (10:02)
[2024-10-14] MEDS: Pantoprazole 40 MG VIAL IVP SCH (10:03)
[2024-10-14] MEDS: diphenhydrAMINE 50 MG/ML VIAL IVP SCH (11:31)
[2024-10-14 11:48] LABS: Anion Gap 14 mmol/L (10-20); BUN (Urea Nitrogen) 23 mg/dL (7.0-18.7); Calc. Creatinine Clearance 24 mL/min (70-130); Calcium 7.9 mg/dL (7.8-10.44); Carbon Dioxide 18 mmol/L (22-29); Chloride 110 mmol/L (98-107); Glucose 143 mg/dL (70-105); Potassium 4.5 mmol/L (3.5-5.1); Sodium 137 mmol/L (136-145)
[2024-10-14] MEDS: Insulin Glargine 30 UNITS/0.3 ML VIAL SC SCH ×2 (12:21→20:55)
[2024-10-14] MEDS: hydrALAZINE 20 MG/ML VIAL SLOW IVP PRN (12:37)
[2024-10-14] MEDS: diphenhydrAMINE 25 MG CAP PO PRN (17:50)
[2024-10-14] MEDS: HYDROcodone/Acetaminophen 7.5/325 mg Tablet PO SCH ×2 (19:41→22:58)
[2024-10-14] MEDS: Melatonin 3 MG TAB PO PRN (19:50)
[2024-10-15 06:19] LABS: Anion Gap 12 mmol/L (10-20); BUN (Urea Nitrogen) 25 mg/dL (7.0-18.7); Calc. Creatinine Clearance 23 mL/min (70-130); Calcium 7.4 mg/dL (7.8-10.44); Carbon Dioxide 24 mmol/L (22-29); Chloride 104 mmol/L (98-107); Glucose 155 mg/dL (70-105); Potassium 4.1 mmol/L (3.5-5.1); Sodium 136 mmol/L (136-145)
[2024-10-15] MEDS: EPOETIN ALFA-EPBX (ESRD) 10,000 UNITS/ML VIAL SC SCH (08:57)
[2024-10-15] MEDS: Sodium Ferric Gluconate 250 MG in Sodium Chloride 0.9% 250 ML 250 ML IVPB SCH (08:57)
[2024-10-15] MEDS: Insulin Glargine 30 UNITS/0.3 ML VIAL SC SCH (08:58)
[2024-10-15] MEDS: Pantoprazole 40 MG DR.TAB PO SCH (08:58)
[2024-10-15 09:14] VITALS: BP 147/88; TEMP 98.4
[2024-10-15 10:22] LABS: #Basophils Less than 0.03 10x3/uL (0.0-0.2); #Eosinophils 0.32 10x3/uL (0.0-0.7); #Monocytes 0.45 10x3/uL (0.11-0.59); #Neutrophils 3.45 10x3/uL (1.40-6.50); %Basophils 0.1 % (0.0-1.0); %Eosinophils 4.8 % (0.0-10.0); %Lymphocytes 36.3 % (21.0-51.0); %Monocytes 6.7 % (0.0-10.0); %Neutrophils 51.8 % (42.0-75.0); Hematocrit 22.3 % (36.0-47.0); Hemoglobin 7.2 g/dL (12.0-16.0); Mean Corpuscular Hemoglobin 27.3 pg (27.0-31.0); Mean Corpuscular Volume 84.5 fL (78.0-98.0); Platelet Count 150 10x3/uL (130-400); Red Blood Cell (RBC) Count 2.64 mill/uL (4.20-5.40); White Blood Cell (WBC) Count 6.67 10x3/uL (4.8-10.8)
== END 2024-10-15 12:34 | disposition home or self-care (01) | DRG 638 ==
LOC: ERS 12:37 → ERHOLD 15:14 → CCU 17:20 → T4-B 10-14 18:24
PROVIDERS: ADMIT Family Medicine; ATTEND Internal Medicine
DX: E10.10 Type 1 diabetes mellitus with ketoacidosis without coma (principal); E87.1 Hypo-osmolality and hyponatremia; I16.9 Hypertensive crisis, unspecified; N17.9 Acute kidney failure, unspecified; N18.4 Chronic kidney disease, stage 4 (severe); E10.43 Type 1 diabetes mellitus with diabetic autonomic (poly)neuropathy; K31.84 Gastroparesis; D63.1 Anemia in chronic kidney disease; E10.22 Type 1 diabetes mellitus with diabetic chronic kidney disease; Z96.41 Presence of insulin pump (external) (internal); E10.319 Type 1 diabetes mellitus with unspecified diabetic retinopathy without macular edema; E83.42 Hypomagnesemia; E83.39 Other disorders of phosphorus metabolism; D53.9 Nutritional anemia, unspecified; Z79.4 Long term (current) use of insulin; Z90.49 Acquired absence of other specified parts of digestive tract; Z98.890 Other specified postprocedural states; Z89.411 Acquired absence of right great toe; Z82.49 Family history of ischemic heart disease and other diseases of the circulatory system; Z88.8 Allergy status to other drugs, medicaments and biological substances; Z79.82 Long term (current) use of aspirin; Z79.899 Other long term (current) drug therapy
CPT/HCPCS: 36415; 36416; 71045; 80048; 80053; 82010; 82728; 82805; 83540; 83550; 83605; 83690; 83735; 84100; 84484; 84703; 85025; 93005; 94760; 96365; 96366; 96375; J0360; J0780; J1171; J1200; J1644; J1815; J2270; J2405; J2470; J2550; J2916; J3010; J3475; J3480; J7042; J7050; J7999; Q5105

== ENCOUNTER 2025-01-24 15:27 | Observation (INO) | payer OTHER ==
[2025-01-24 17:15] VITALS: BMI 28.1
[2025-01-24] MEDS: FLU (Fluarix Triv) 25-26 (6MOS UP)/PF 45 MCG/0.5 ML Syringe IM ONE (17:16)
[2025-01-24] MEDS: PNEUMOC 20-VAL CONJ-DIP CRM/PF 0.5 ML SYRINGE IM ONE (17:16)
[2025-01-24] MEDS ORDERED: Glucagon 1 MG/ML KIT IM PRN (17:52)
[2025-01-24] MEDS ORDERED: Dextrose 50% Abboject 50 ML SYRINGE SLOW IVP PRN (17:52)
[2025-01-24] MEDS ORDERED: Acetaminophen 325 MG TAB PO PRN (17:53)
[2025-01-24] MEDS ORDERED: Guaifenesin DM 100-10/5 ML UDCUP PO PRN (17:53)
[2025-01-24] MEDS ORDERED: Calcium Carbonate 500 MG ChewTAB PO PRN (17:53)
[2025-01-24] MEDS ORDERED: Ketorolac Tromethamine 30 MG (1 mL) VIAL IVP PRN (17:55)
[2025-01-24] MEDS: Ondansetron PF 4 MG/2 ML Vial IVP PRN (19:23)
[2025-01-24] MEDS: Calcitriol 0.25 MCG CAP PO SCH (20:27)
[2025-01-24] MEDS: Heparin 5,000 UNITS/ML VIAL SC SCH (20:28)
[2025-01-24] MEDS: Insulin Glargine 30 UNITS/0.3 ML VIAL SC SCH (20:28)
[2025-01-24] MEDS: Metoclopramide HCl 10 MG (2 mL) VIAL IVP SCH (22:01)
[2025-01-25 06:04] LABS: #Basophils Less than 0.03 10x3/uL (0.0-0.2); #Eosinophils 0.33 10x3/uL (0.0-0.7); #Monocytes 0.40 10x3/uL (0.11-0.59); #Neutrophils 2.93 10x3/uL (1.40-6.50); %Basophils 0.3 % (0.0-1.0); %Eosinophils 5.5 % (0.0-10.0); %Lymphocytes 38.1 % (21.0-51.0); %Monocytes 6.7 % (0.0-10.0); %Neutrophils 49.1 % (42.0-75.0); Hematocrit 24.3 % (36.0-47.0); Hemoglobin 7.9 g/dL (12.0-16.0); Mean Corpuscular Hemoglobin 28.2 pg (27.0-31.0); Mean Corpuscular Volume 86.8 fL (78.0-98.0); Platelet Count 144 10x3/uL (130-400); Red Blood Cell (RBC) Count 2.80 mill/uL (4.20-5.40); White Blood Cell (WBC) Count 5.98 10x3/uL (4.8-10.8)
[2025-01-25 06:19] LABS: Anion Gap 14 mmol/L (10-20); BUN (Urea Nitrogen) 27 mg/dL (7.0-18.7); Calc. Creatinine Clearance 22 mL/min (70-130); Calcium 8.0 mg/dL (7.8-10.44); Carbon Dioxide 24 mmol/L (22-29); Chloride 107 mmol/L (98-107); Glucose 91 mg/dL (70-105); Potassium 3.6 mmol/L (3.5-5.1); Sodium 141 mmol/L (136-145)
[2025-01-25 08:19] VITALS: BP 154/93; TEMP 98.1
[2025-01-25] MEDS: Pantoprazole 40 MG DR.TAB PO SCH (08:21)
[2025-01-25] MEDS: Aspirin Chewable 81 MG TAB PO SCH (08:21)
[2025-01-25] MEDS: Losartan 25 MG TAB PO SCH (08:22)
== END 2025-01-25 11:39 | disposition home or self-care (01) ==
LOC: INTOOBSV 16:21 → T4-B 16:21
PROVIDERS: ADMIT Internal Medicine; ATTEND Family Medicine
DX: R11.2 Nausea with vomiting, unspecified (principal); R10.9 Unspecified abdominal pain; E10.22 Type 1 diabetes mellitus with diabetic chronic kidney disease; N18.6 End stage renal disease; D63.1 Anemia in chronic kidney disease; E10.3493 Type 1 diabetes mellitus with severe nonproliferative diabetic retinopathy without macular edema, bilateral; K59.00 Constipation, unspecified; Z99.2 Dependence on renal dialysis; Z98.49 Cataract extraction status, unspecified eye; Z90.49 Acquired absence of other specified parts of digestive tract; Z90.89 Acquired absence of other organs; Z88.8 Allergy status to other drugs, medicaments and biological substances; Z88.5 Allergy status to narcotic agent; Z79.4 Long term (current) use of insulin; Z79.899 Other long term (current) drug therapy
CPT/HCPCS: 36415; 36416; 80048; 85025; 96372; 96374; 96375; 96376; G0378; J1644; J1815; J2405; J2765